=== PATIENT | female | born 1945 | race Caucasian/White ===

== ENCOUNTER → 2019-12-03 11:13 | Outpatient (CLI) | payer OTHER, SELFPAY ==
--- NOTE | ~2019-12-03 | XR_ITS ---
EXAMINATION: XR chest 2V DATE: 12/03/2019 12:06 INDICATION: Dizziness and shortness of breath. TECHNIQUE: Frontal and lateral views of the chest were obtained. COMPARISON: Chest 2 views 12/30/2018 FINDINGS: Calcified right lung nodules are consistent with old granulomatous disease. There are surgi jose a clips at the right hilum. No pleural effusion or pneumothorax. The heart size is normal. There is an implanted electronic device in left anterior chest wall. There are changes of anterior fusion pro cedure in cervical spine. IMPRESSION: 1. No acute cardiopulmonary disease. Reviewed, dictated and finalized at location A. 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
== END ==
PROVIDERS: PCP Family Medicine Adolescent Medicine; Visit Provider Physician Assistant
DX: R42 Dizziness and giddiness (principal); R06.02 Shortness of breath
CPT/HCPCS: 71046

== ENCOUNTER → 2019-12-19 09:12 | Outpatient (CLI) | payer OTHER, SELFPAY ==
--- NOTE | ~2019-12-19 | DEXA_ITS ---
Bone Density Report Name: Ana Luisa Desouza Age: 74 Sex: Female Ethnicity: White Date of : 1945 Indication: monitoring treatment; height loss; hysterectomy; Referring Provider: PIERRE SEN Study: Bone densitometry was performed. Exam Date: December 19, 2019 Accession number: [id number] Bone Density: Region BMD T-score Z-score Classification AP Spine (L1, L2) 1.368 3.5 5.8 Normal Femoral Neck (Left) 0.983 1.2 3.3 Normal Total Hip (Left) 1.215 2.2 4.0 Normal Femoral Neck (Right) 0.987 1.2 3.3 Normal Total Hip (Right) 1.181 2.0 3.7 Normal Total Hip Mean 1.198 2.1 3.9 Normal World Health Organization criteria for BMD impression classify patients as: Normal (T-score at or above -1.0), Osteopenia (T-score between -1.0 and -2.5), or Osteoporosis (T-score at or below -2.5). 10-year Fracture Risk: FRAX not reported because: All T-scores for Spine Total, Hip Total, Femoral Neck at or above -1.0 Treated for osteoporosis Previous Exams: Region Exam Age BMD T-score BMD Change BMD Change Date g/cm2 vs Baseline vs Previous AP Spine(L1, L2) 12/19/2019 74 1.368 3.5 0.155* 0.064* 05/28/2016 70 1.304 3.0 0.091* 0.091* 07/26/2013 68 1.213 2.1 Total Hip(Left) 12/19/2019 74 1.215 2.2 0.088* 0.034* 05/28/2016 70 1.181 2.0 0.054* 0.054* 07/26/2013 68 1.127 1.5 Total Hip(Right) 12/19/2019 74 1.181 2.0 0.039* 0.008 05/28/2016 70 1.173 1.9 0.032* 0.032* 07/26/2013 68 1.141 1.6 *Denotes significance at 95% confidence level, LSC for AP Spine = 0.022 g/cm2, LSC for Total Hip = 0.027 g/cm2 Clinical Information Provided by Patient: Is being treated for osteoporosis Has used the following medications: HRT (i.e. estrogen/hormone therapy), Vitamin D, Calcium Has the following medical conditions: Hysterectomy Patient maximum height was 64 Menopause Age: 42 No regular weight bearing exercise Does not regularly consume dairy products Drinks caffeinated beverages Onset of menses at age 14 Number of children 4 Impression: The patient has normal bone mass. No significant bone loss was observed. Discussion: PATIENT UNDER TREATMENT WITH NO SIGNIFICANT BMD LOSS SINCE LAST EXAM. In an untreated patient, BMD typically declines with age. A lack of decline or gain is usually a sign that treatment is efficaciou
== END ==
PROVIDERS: Visit Provider Family Medicine Adolescent Medicine
DX: Z78.0 Asymptomatic menopausal state (principal)
CPT/HCPCS: 77080

== ENCOUNTER 2019-12-20 14:11 | Outpatient (CLI) | payer OTHER, SELFPAY ==
--- NOTE | ~2019-12-20 | MM_ITS ---
EXAMINATION: MM screening iraida BI w eliot HISTORY: Screening mammogram TECHNIQUE: Craniocaudal and mediolateral oblique 3-D tomosynthesis images were obtained and synthetic 2-D images were generated. CAD analysis was submitted and interpreted. COMPARISON: Comparison to multiple prior studies sequentially, with oldest reviewed study dated 01/15. BREAST PARENCHYMAL COMPOSITION: The breasts are heterogeneously dense, which may obscure small masses . FINDINGS: There is no evidence of suspicious mass, calcification, or architectural distortion to sugg est malignancy in either breast. There has been no suspicious interval change. IMPRESSION: 1. No mammographic evidence of malignancy. 2. Recommend routine screening mammography in one year. BI-RADS Category 1: Negative Reviewed, dictated and finalized at location A. N BLOCKER
== END 2019-12-20 14:12 | disposition home or self-care (01) ==
PROVIDERS: Visit Provider Family Medicine Adolescent Medicine
DX: Z12.31 Encounter for screening mammogram for malignant neoplasm of breast (principal)
CPT/HCPCS: 77063; 77067

== ENCOUNTER 2020-11-14 08:16 | Outpatient (CLI) | payer OTHER, SELFPAY ==
--- NOTE | ~2020-11-14 | US_ITS ---
EXAMINATION: US arterial ankle brachial ind DATE: 11/14/2020 08:56 INDICATION: Peripheral vascular disease. TECHNIQUE: Segmental pressures and plethysmographic and Doppler waveforms of the brachial and lower e xtremity arteries were obtained. COMPARISON: Arterial Doppler and segmental pressures 02/03/18 FINDINGS: Right and left brachial artery pressures of 142 mm Hg and 138 mm Hg, respectively, are concordant (no rmal difference <= 30 mmHg). The right ankle-brachial index (INDIO) is 0.95 (normal >= 0.9-1.0). The right great toe-brachial index (TBI) is 0.54 (normal >= 0.65). Arterial Doppler waveforms are biphasic at the ankle. The left INDIO is 0.96. The left TBI is 0.63. Arterial Doppler waveforms are biphasic at the ankle. IMPRESSION: 1. Mildly decreased ABIs with improvement from 02/03/2018, consistent with arterial occlusive disease. Reviewed, dictated and finalized at location B. 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 Mildly decreased ABIs with improvement from 02/03/2018, consistent with arter ial occlusive disease.
== END 2020-11-14 08:17 | disposition home or self-care (01) ==
PROVIDERS: PCP Family Medicine Adolescent Medicine; Visit Provider Orthopaedic Surgery
DX: I73.9 Peripheral vascular disease, unspecified (principal)
CPT/HCPCS: 93922

== ENCOUNTER 2020-11-24 10:23 | Outpatient (CLI) | payer OTHER, SELFPAY ==
--- NOTE | ~2020-11-24 | US_ITS ---
EXAMINATION: US venous doppler LE BI EXAM DATE: 11/24/2020 11:22 INDICATION: I87.2 - Venous insufficiency (chronic) (peripheral). TECHNIQUE: Multiple grayscale, color flow and Doppler images of the lower extremity venous systems bi laterally were obtained and reviewed. Saphenous venous mapping. The exam was reviewed on 11/24/2020. T here is no prior study for comparison. FINDINGS: Right side: The right common femoral, femoral and profunda veins demonstrate normal color flow, respi ratory variation, augmentation and compressibility. Compressibility, color flow confirmed within the right popliteal, posterior tibial, peroneal, and greater saphenous veins. Right Standing Venous Mapping: reflux seconds duration; vein size. Greater saphenous origin: 0 seconds; 3.8 mm. Greater saphenous mid thigh:------ 0 seconds; 2.4 mm. Greater saphenous below knee:--- 0 seconds; 2.0 mm. Lesser saphenous proximally:------ 0 seconds; 1.2 mm. Lesser saphenous distally: 0 seconds; 1.3 mm. Left side: The left common femoral, femoral and profunda veins demonstrate normal color flow, respira tory variation, augmentation and compressibility. Compressibility, color flow confirmed within the l eft popliteal, posterior tibial, peroneal, and greater saphenous veins. Left Standing Venous Mapping: reflux seconds duration; vein size. Greater saphenous origin: 0 seconds; 3.1 mm. Greater saphenous mid thigh:------ 0 seconds; 1.8 mm. Greater saphenous below knee:--- 0 seconds; 2.0 mm. Lesser saphenous proximally:------ 0 seconds; 2.2 mm. Lesser saphenous distally: 0 seconds; 1.4 mm. IMPRESSION: 1. No lower extremity deep venous thrombosis bilaterally. 2. No venous reflux demonstrated Reviewed, dictated and finalized at location B. RANCE ACTUARY
== END 2020-11-24 10:24 | disposition home or self-care (01) ==
PROVIDERS: PCP Family Medicine Adolescent Medicine; Visit Provider Orthopaedic Surgery
DX: I87.2 Venous insufficiency (chronic) (peripheral) (principal); M79.671 Pain in right foot
CPT/HCPCS: 93970

== ENCOUNTER 2021-02-06 09:07 | Outpatient (CLI) | payer OTHER, SELFPAY ==
--- NOTE | ~2021-02-06 | MM_ITS ---
EXAMINATION: MM screening iraida BI w eliot HISTORY: Screening TECHNIQUE: Craniocaudal and mediolateral oblique 3-D tomosynthesis images were obtained and synthetic 2-D images were generated. CAD analysis was submitted and interpreted. COMPARISON: Comparison to multiple prior studies sequentially, with oldest reviewed study dated 03/18. BREAST PARENCHYMAL COMPOSITION: The breasts are heterogenously dense, which may obscure small masses FINDINGS: There is no evidence of suspicious mass, calcification, or architectural distortion to sugg est malignancy in either breast. There has been no suspicious interval change. IMPRESSION: 1. No mammographic evidence of malignancy. 2. Recommend routine screening mammography in one year. BI-RADS Category 1: Negative Reviewed, dictated and finalized at location A.
== END 2021-02-06 09:08 | disposition home or self-care (01) ==
LOC: ANHIMG 09:10
PROVIDERS: PCP Family Medicine Adolescent Medicine; Visit Provider Family Medicine Adolescent Medicine
DX: Z12.31 Encounter for screening mammogram for malignant neoplasm of breast (principal)
CPT/HCPCS: 77063; 77067

== ENCOUNTER 2021-02-19 09:47 | Outpatient (RCR) | payer OTHER, SELFPAY ==
[2021-02-19 12:41] VITALS: BMI 26.1
== END 2021-04-01 10:50 | disposition home or self-care (01) ==
LOC: ANHWOC 09:47
PROVIDERS: PCP Family Medicine Adolescent Medicine; Visit Provider Family Medicine Adolescent Medicine
DX: M79.671 Pain in right foot (principal); M79.672 Pain in left foot; R60.0 Localized edema
CPT/HCPCS: 99212; G0463

== ENCOUNTER → 2021-03-12 12:24 | Outpatient (CLI) | payer OTHER, SELFPAY ==
--- NOTE | ~2021-03-12 | US_ITS ---
EXAMINATION: US renal BI DATE: 03/12/2021 12:39 INDICATION: Chronic kidney disease TECHNIQUE: Multiple grayscale and Doppler ultrasound images of the kidneys were obtained. COMPARISON: 07/07/2015 FINDINGS: The right kidney measures 8.6 x 4.2 x 4.6 cm. The left kidney measures 8.1 x 3.5 x 4.2 cm. The kidneys demonstrate normal parenchymal echogenicity. There is no hydronephrosis. The bladder is n ormal. IMPRESSION: 1. Normal kidneys without hydronephrosis. Reviewed, dictated and finalized at location A.
== END ==
PROVIDERS: Visit Provider Internal Medicine Nephrology
DX: N18.4 Chronic kidney disease, stage 4 (severe) (principal)
CPT/HCPCS: 76775

== ENCOUNTER 2021-05-09 11:59 | Emergency (ER) | payer OTHER, SELFPAY ==
--- NOTE | ~2021-05-09 | XR_ITS ---
EXAMINATION: XR shoulder RT min 2V INDICATION: Restricted range of motion of the right arm TECHNIQUE: Four views of the right shoulder are submitted. COMPARISON: 05/26/2007 FINDINGS: Normal alignment. No fracture. There is moderate osteoarthritis of the acromioclavicular karissa int and mild osteoarthritis of the glenohumeral joint. There are partially imaged changes of anterior fusion in the cervical spine. Surgical clips are noted at the right hilum. IMPRESSION: 1. No acute osseous abnormality. Reviewed, dictated and finalized at location A.
--- NOTE | 2021-05-09 12:03 | ED.UPPEXIN ---
HPI - Extremity Injury (Upper) General Chief Complaint: Extremity Injury, Upper Stated Complaint: right shoulder pain Time Seen by Provider: 05/09/21 12:04 Source: patient and RN notes reviewed Mode of arrival: ambulatory Limitations: no limitations History of Present Illness HPI narrative: 75-year-old female presents to the [facility] with complaints of lateral right shoulder pain for approximately 1 week. Presents with daughter. Had taken Tylenol last night. Denies any injury. Decreased ROM. Denies pain in the elbow, wrist. No swelling or signs of infection. HX of arthritis. Related Data Home Medications Medication Instructions Recorded Confirmed acetaminophen 500 mg capsule 500 mg PO Q6H PRN 11/12/20 apixaban 5 mg tablet 5 mg PO BID 11/12/20 calcium carbonate 600 mg-vitamin tablet PO 11/12/20 D3 1,000 unit-vitamin K2 90 mcg tab cetirizine 10 mg tablet 10 mg PO DAILY PRN 11/12/20 chlorthalidone 25 mg tablet 25 mg PO DAILY 11/12/20 cholecalciferol (vitamin D3) 50 50 mcg PO DAILY 11/12/20 mcg (2,000 unit) capsule clonidine 0.2 mg/24 hr weekly 1 patch TRANSDERMAL WEEKLY 11/12/20 transdermal patch estradiol 0.5 mg tablet 0.5 mg PO DAILY 11/12/20 furosemide 20 mg tablet 20 mg PO QAM 11/12/20 irbesartan 300 mg tablet 150 mg PO DAILY 11/12/20 metoprolol tartrate 25 mg tablet 25 mg PO DAILY 11/12/20 pantoprazole 40 mg granules 40 mg PO DAILY 11/12/20 delayed-release for susp in packet rosuvastatin 5 mg tablet 5 mg PO DAILY 11/12/20 vitamin B complex 1 cap PO DAILY 11/12/20 gabapentin 05/09/21 Allergies Allergy/AdvReac Type Severity Reaction Status Date / Time codeine Allergy Unknown Verified 12/30/11 11:31 Review of Systems Review of Systems: All systems reviewed & are unremarkable except as noted in HPI and below Constitutional: Constitutional: Reports no additional constitutional complaints Eyes: Eyes: Reports no additional eye complaints ENT: Reports system reviewed and no additional complaints, except as documented Cardiovascular: Cardiovascular: Reports no additional cardiovascular complaints Respiratory: Respiratory: Reports no additional respiratory complaints Musculoskeletal: Musculoskeletal: Reports as per HPI and Reports arthralgias (rt shoulder) Integumentary/Breasts: Skin/Breast: Reports system reviewed and no additional complaints, except as docu, Denies erythema and Denies rash Neurologic: Reports system reviewed and no additional complaints, except as documented Psychiatric: Psychiatric: Reports no additional psychiatric complaints Allergic/Immunologic: Allergic/Immunologic: Reports no additional allergic/immunologic complaints PMFSH Past Medical History Medical History A-fib Abdominal pain Arthritis Arthritis of foot, right, degenerative High cholesterol Light headedness Peripheral arterial disease Saphenofemoral venous reflux Wears glasses Family History Family History Sibling Hypertension Family history of elevated blood lipids Father Family history of kidney disease Family history of heart disease in male family member before age 55 Mother Family history of congestive heart failure Other Arthritis Heart disease High cholesterol Lung cancer Social History Social History Smoking status: Never smoker Alcohol intake: never Gender identity (if verbalized by the patient): Female Comments At the time of my signature, I reviewed and agree with the nursing past medical, surgical, social, and family history. There is no relevant family history pertinent to the patient complaint. Exam Const: General: no acute distress, alert and ill appearing chronically Nutritional Appearance: well nourished HENMT: Head: normal to inspection Eyes: Pupils: Equal, round and reactive pupils present Neck:
[2021-05-09 12:07] VITALS: BP 115/78; PULSE 69; RESP 16; TEMP 36.7; O2SAT 98
== END 2021-05-09 13:18 | disposition home or self-care (01) ==
PROVIDERS: Emergency Provider Nurse Practitioner; PCP Family Medicine Adolescent Medicine
DX: M19.011 Primary osteoarthritis, right shoulder (principal); I48.91 Unspecified atrial fibrillation; E78.00 Pure hypercholesterolemia, unspecified; I73.9 Peripheral vascular disease, unspecified; M19.071 Primary osteoarthritis, right ankle and foot
CPT/HCPCS: 73030; 99213; G0463

== ENCOUNTER 2021-05-10 15:48 | Inpatient (IN) | payer OTHER, SELFPAY ==
--- NOTE | ~2021-05-10 | CT_ITS ---
EXAMINATION: CT brain wo con DATE: 05/10/2021 17:22 INDICATION: Altered mental status TECHNIQUE: Computed tomography (CT) of the head was performed without intravenous contrast. Sagittal and coronal reconstructions were performed. The mA was adjusted according to patient size. Iterative reconstruction technique was employed. The dose-length product was 605.33 mGy-cm. COMPARISON: head CT dated 07/06/2015 FINDINGS: No acute intracranial hemorrhage, acute infarction or abnormal extra axial fluid collection. Ventricl es are normal and symmetric. No mass/mass effect. Intracranial calcified cerebral atherosclerosis is noted. The orbits, paranasal sinuses and mastoid air cells are normal. IMPRESSION: 1. Normal brain. No acute intracranial process. Reviewed, dictated and finalized at location A.
--- NOTE | ~2021-05-10 | MR_ITS ---
EXAMINATION: MR brain/brain stem wo con DATE: 05/11/2021 13:59 INDICATION: Altered mental status TECHNIQUE: Magnetic resonance imaging (MRI) of the brain and brainstem was performed without intraven ous contrast. Sequences included sagittal and axial T1-weighted SE, axial diffusion-weighted FS SE, a xial T2*-weighted GRE, axial T2-weighted FLAIR, and axial T2-weighted FSE. Apparent diffusion coeffic ient (ADC) maps were created. COMPARISON: Head CT dated 05/10/2021 FINDINGS: There are no areas of restricted diffusion to suggest acute infarction. No intracranial hemorrhage or abnormal intracranial mass lesion. There are scattered areas of nonspecific increased T2-weighted si gnal intensity in the cerebral white matter, predominantly involving the deep and periventricular whi te matter which is within normal limits for age. There are no intraparenchymal signal abnormalities s een on the other pulse sequences. The ventricles are symmetric and normal in size. There are no abnor mal extra-axial fluid collections. Flow voids are seen in the cerebral arteries on the T2-weighted se quences consistent with their expected patency. Mild mucosal thickening the bilateral ethmoid sinuses . Visualized orbits and soft tissues are unremarkable. IMPRESSION: 1. Normal aging brain. No acute intracranial process. Reviewed, dictated and finalized at location A.
--- NOTE | ~2021-05-10 | US_ITS ---
EXAMINATION: US renal BI DATE: 05/11/2021 13:23 INDICATION: Acute kidney injury TECHNIQUE: Multiple grayscale and Doppler ultrasound images of the kidneys were obtained. COMPARISON: 03/12/2021 FINDINGS: The right kidney measures 8.3 x 4.3 x 4.6 cm. The left kidney measures 8.6 x 3.7 x 3.7 cm. The kidneys demonstrate normal parenchymal echogenicity. There is no hydronephrosis. The bladder is n ormal. IMPRESSION: 1. Mild atrophy of the kidneys without hydronephrosis. Reviewed, dictated and finalized at location B.
[2021-05-10 16:04] VITALS: BP 158/80; PULSE 70; RESP 20; TEMP 37.1; O2SAT 97
[2021-05-10 16:07] VITALS: BP 137/61; PULSE 60; RESP 20; O2SAT 98
--- NOTE | 2021-05-10 16:08 | ECG_ITS ---
Measurements Intervals [place] Rate: 57 P: -48 WY: 162 QRS: 34 QRSD: 81 T: 20 QT: 426 QTc: 418 Interpretive Statements SINUS BRADYCARDIA BASELINE ARTIFACT- I, II, III, AVR, AVL, AVF, V1-V6 BORDERLINE ECG Electronically Signed On 05-10-2021 18:02:27 CDT by Lalo Yang D.O.
--- NOTE | 2021-05-10 16:51 | ED.GENADULT ---
HPI - General Adult General Chief complaint: Altered Mental Status Stated complaint: AMS Time Seen by Provider: 05/10/21 15:49 Source: patient and family History of Present Illness HPI narrative: Patient is a 75 y/o female brought in for altered mental status. Son states that patient appeared fine when he was there to visit her yesterday. However, patient did not answer the phone later yesterday when other family members attempted to call. Son states when he went to check on her today, she was on the commode and she did not remember what happened. She may have been incontinent prior to getting on the commode. EMS was then called and brought her here. She has no recollection of what happened but states that she feels fine. Son states that she keeps repeating the same questions again and again at times. Related Data Home Medications Medication Instructions Recorded Confirmed acetaminophen 500 mg capsule 500 mg PO Q6H PRN 11/12/20 apixaban 5 mg tablet 5 mg PO BID 11/12/20 calcium carbonate 600 mg-vitamin tablet PO 11/12/20 D3 1,000 unit-vitamin K2 90 mcg tab cetirizine 10 mg tablet 10 mg PO DAILY PRN 11/12/20 chlorthalidone 25 mg tablet 25 mg PO DAILY 11/12/20 cholecalciferol (vitamin D3) 50 50 mcg PO DAILY 11/12/20 mcg (2,000 unit) capsule clonidine 0.2 mg/24 hr weekly 1 patch TRANSDERMAL WEEKLY 11/12/20 transdermal patch estradiol 0.5 mg tablet 0.5 mg PO DAILY 11/12/20 furosemide 20 mg tablet 20 mg PO QAM 11/12/20 irbesartan 300 mg tablet 150 mg PO DAILY 11/12/20 metoprolol tartrate 25 mg tablet 25 mg PO DAILY 11/12/20 pantoprazole 40 mg granules 40 mg PO DAILY 11/12/20 delayed-release for susp in packet rosuvastatin 5 mg tablet 5 mg PO DAILY 11/12/20 vitamin B complex 1 cap PO DAILY 11/12/20 gabapentin 05/09/21 Allergies Allergy/AdvReac Type Severity Reaction Status Date / Time codeine Allergy Unknown Verified 12/30/11 11:31 Review of Systems Review of Systems: ROS unobtainable: Yes unobtainable due to mental status [facility] Past Medical History Medical History (Updated 05/10/21 @ 21:17 by Fanny Hernandez MD) A-fib Abdominal pain Arthritis Arthritis of foot, right, degenerative High cholesterol Light headedness Peripheral arterial disease Saphenofemoral venous reflux Wears glasses Family History Family History Sibling Hypertension Family history of elevated blood lipids Father Family history of kidney disease Family history of heart disease in male family member before age 55 Mother Family history of congestive heart failure Other Arthritis Heart disease High cholesterol Lung cancer Social History Social History Smoking status: Never smoker Alcohol intake: never Gender identity (if verbalized by the patient): Female Exam Const: General: no acute distress and well developed Orientation/consciousness: oriented to person, oriented to place, oriented to time and patient oriented x3 HENMT: Head: normocephalic Ears: external ears normal General nose exam: Normal external nose present Eyes: General: appearance normal, both eyes and all related structures Conjunctivae: conjunctivae normal Neck: Neck: normal visual inspection and full ROM Chest: Chest palpation & inspection: normal inspection of the chest and no tenderness Resp: Effort & Inspection: normal respiratory effort Auscultation: clear to auscultation bilaterally Cardio: Rate: regular rate Rhythm: regular rhythm GI: GI Palp: No abdominal tenderness and Yes Soft to palpation Skin: General skin exam: normal color and turgor normal Neuro: General: oriented to person, oriented to place, oriented to time and patient oriented x3 Cranial nerves: Yes CN's II-XII intact bilaterally Cognition (Neuro): normal cognition Speech: normal speech Motor exam (neuro): 5/5 motor strength present throughout Se
[2021-05-10 17:46] LABS: Add Urine Microscopic? YES; Appearance Urine Cloudy (Clear); Bilirubin Urine Negative (Negative); Blood Urine Negative (Negative); Color Urine Yellow (Yellow); Glucose Urine UA Negative (Negative); Ketones Urine Trace mg/dL (Negative); Leukocyte Esterase Ur Negative LEU/UL (Negative); Mucus Urine Rare /lpf; Nitrate Urine Negative (Negative); Protein Urine Negative (Negative); Specific Grav Ur 1.017 (1.001-1.035); Squamous Epithelial Cell Urine Many /hpf (Few); Urobilinogen Urine Negative mg/dL (<2.0); WBC Urine 0-3 /hpf
[2021-05-10 17:50] LABS: Basophils Percent Auto 0.3 % (0.2-1.2); Immature Granulocyte Absolute 0.04 K/mm3 (0.00-0.031); Immature Granulocyte Percent A 0.6 % (0-0.5); Lymphocytes Percent Auto 17.1 % (18.3-44.2); Mean Corpuscular HGB Conc 34.4 g/dl (32-36); Mean Corpuscular Hemoglobin 31.7 pg (26-34); Mean Corpuscular Volume 92.2 fl (80-100); Mean Platelet Volume 9.7 fl (7.4-10.4); Monocytes Absolute Auto 0.5 K/mm3 (0.1-0.6); Monocytes Percent Auto 7.6 % (2.6-8.5); Neutrophils Absolute Auto 4.8 K/mm3 (1.3-6.7); Neutrophils Percent Auto 74.4 % (45.5-73.1); Platelet Count Result 255 k/mm3 (150-375); Red Blood Count 3.47 M/mm3 (4.2-5.4); Red Cell Distribution Width 12.2 % (11.5-14.5); White Blood Count 6.4 K/mm3 (4.5-10.0)
[2021-05-10 17:57] VITALS: BP 128/58; PULSE 61; RESP 13; O2SAT 99
[2021-05-10 18:00] LABS: Alanine Aminotransferase 13 U/L (4-35); Albumin Level 4.1 g/dL (3.5-5.1); Alkaline Phosphatase 79 U/L (38-126); Anion Gap 12 mmol/L (8-16); Aspartate Amino Transferase 22 U/L (14-36); Bilirubin,Total 1.2 mg/dL (0.2-1.3); Blood Urea Nitrogen 37 mg/dL (7-17); Calcium 11.6 mg/dL (8.4-10.2); Carbon Dioxide 27 mmol/L (22-30); Chloride 101 mmol/L (98-107); Estimated CRCL calculation 18 ml/min; Estimated Glomerular Filt Rate 24; Glucose 122 mg/dL (65-110); Potassium 3.5 mmol/L (3.4-5.0); Sodium 140 mmol/L (137-145)
[2021-05-10] MEDS: SODIUM CHLORIDE 0.9% IV 1,000 ML 999 ML IV CONT (19:01)
--- NOTE | 2021-05-10 20:30 | PM.IMHP ---
H&P: HPI History of Present Illness Date/Time: 05/10/21 20:30 Chief Complaint: Altered mental status Narrative: This is a 75-year-old female WITH PAST MEDICAL HISTORY SIGNIFICANT FOR ATRIAL FIBRILLATION, HYPERTENSION, DEGENERATIVE JOINT DISEASE. PATIENT WAS BROUGHT TO THE EMERGENCY ROOM BY AMBULANCE AFTER SHE WAS NOT ANSWERING HER FOR FAMILY WHO CHECKS IN WITH HER EVERYDAY FOUND HER SITTING ON THE TOILET AND THERE WERE SIGNS OF INCONTINENCE OF STOOL ALL OVER SHE WAS SHAKING AND CALLED AND CONFUSED. I HAVE OBTAINED MOST OF THE HISTORY FROM THE SON WHO IS IN THE EMERGENCY ROOM BY HER BEDSIDE STATES THAT SHE HAS BEEN IN HER USUAL SINCE YESTERDAY WAS THE LAST TIME THAT HE SAW HER AND HAD NOT NOTED ANY NEW ISSUES SHE HAD BEEN COMPLAINING OF SHOULDER PAIN AND SHE HAD BEEN STARTED ON BACLOFEN ALSO THE PATIENT IS KNOWN TO TAKE EXTRA GABAPENTIN IN THE PAST. PATIENT IS UNABLE TO GIVE ME ANY HISTORY A SHE HAS A VERY CONFUSED AT TIMES DOES NOT KNOW WHY SHE IS IN THE EMERGENCY ROOM. PRELIMINARY WORKUP WAS SIGNIFICANT FOR BMP WITH ELEVATED CREATININE. CT OF THE HEAD WAS UNREMARKABLE AND REST OF THE CHEMISTRY AND BLOOD PANEL WELL. Review of Systems Review of Systems: ROS unobtainable: Yes unobtainable due to medical condition [facility] Past Medical History Medical History (Updated 05/10/21 @ 20:55 by Leonard Fraire MD) A-fib Abdominal pain Arthritis Arthritis of foot, right, degenerative High cholesterol Light headedness Peripheral arterial disease Saphenofemoral venous reflux Wears glasses Family History Family History Sibling Hypertension Family history of elevated blood lipids Father Family history of kidney disease Family history of heart disease in male family member before age 55 Mother Family history of congestive heart failure Other Arthritis Heart disease High cholesterol Lung cancer Social History Social History Smoking status: Never smoker Alcohol intake: never Gender identity (if verbalized by the patient): Female Meds Home Medications and Allergies Home Medications Medication Instructions Recorded Confirmed Type acetaminophen 500 mg capsule 500 mg PO Q6H PRN 11/12/20 History apixaban 5 mg tablet 5 mg PO BID 11/12/20 History calcium carbonate 600 mg-vitamin tablet PO 11/12/20 History D3 1,000 unit-vitamin K2 90 mcg tab cetirizine 10 mg tablet 10 mg PO DAILY PRN 11/12/20 History chlorthalidone 25 mg tablet 25 mg PO DAILY 11/12/20 History cholecalciferol (vitamin D3) 50 50 mcg PO DAILY 11/12/20 History mcg (2,000 unit) capsule clonidine 0.2 mg/24 hr weekly 1 patch TRANSDERMAL WEEKLY 11/12/20 History transdermal patch estradiol 0.5 mg tablet 0.5 mg PO DAILY 11/12/20 History furosemide 20 mg tablet 20 mg PO QAM 11/12/20 History irbesartan 300 mg tablet 150 mg PO DAILY 11/12/20 History metoprolol tartrate 25 mg tablet 25 mg PO DAILY 11/12/20 History pantoprazole 40 mg granules 40 mg PO DAILY 11/12/20 History delayed-release for susp in packet rosuvastatin 5 mg tablet 5 mg PO DAILY 11/12/20 History vitamin B complex 1 cap PO DAILY 11/12/20 History baclofen 10 mg PO TID PRN #10 tablet 05/09/21 Rx diclofenac sodium 1 applic TOPICAL BID #100 g 05/09/21 Rx gabapentin 05/09/21 History Allergies Allergy/AdvReac Type Severity Reaction Status Date / Time codeine Allergy Unknown Verified 12/30/11 11:31 Vital Signs Vital Signs - 24 hr 05/10/21 16:04 05/10/21 16:07 05/10/21 17:57 Temperature 98.7 F Pulse Rate 70 60 61 Respiratory Rate 20 20 13 Blood Pressure 158/80 H 137/61 128/58 L Pulse Oximetry 97 98 99 Exam Narrative: Exam Narrative: PATIENT IS LAYING IN GURNEY Const: General: comfortable, no acute distress, well developed, alert, awake and other ( WELL-APPEARING) Nutritional Appearance: average body habitus Orientation/consciousness: orient
[2021-05-10 21:05] VITALS: BP 145/54; PULSE 71; RESP 20; TEMP 36.6; O2SAT 98
[2021-05-10 21:38] VITALS: BMI 25.9
--- NOTE | 2021-05-10 21:38 | ADMGEN ---
This patient, Ana Luisa Desouza, was admitted to [address] [place] [address] Room 321-01 at 2105 . Patient/family oriented to hospital policies and general routines including ID bracelet, bed and alarms, visiting hours, pain management, procedures, bathroom and other care routines, personal items, smoking policy, room service/diet, and visiting hours. Information on how to activate the Rapid Response Team has been discussed. Patient/Family are encouraged to report perceived risks to care and to ask questions if they do not understand what they are told or what they should do.
[2021-05-10 22:44] VITALS: BP 145/54; PULSE 71; RESP 20; TEMP 36.6; O2SAT 98
[2021-05-10] MEDS: DEXTROSE 5%/0.45% SOD CHL 1,000 ML 75 ML IV CONT (23:45)
[2021-05-11] VITALS (11 sets, daily range): BP systolic 129–154; BP diastolic 57–61; PULSE 57–72; RESP 16–20; TEMP 36.3–36.8; O2SAT 97–99
[2021-05-11] MEDS: ACETAMINOPHEN 500 MG TABLET PO (03:33)
[2021-05-11] MEDS: DICLOFENAC SODIUM 1% 100 GM GEL (*BKC) 1 APPLIC TOPICAL ×2 (08:46→16:49)
[2021-05-11] MEDS: APIXABAN 5 MG TABLET PO ×2 (08:46→20:56)
[2021-05-11] MEDS: METOPROLOL TARTRATE 50 MG TAB PO ×2 (08:46→20:56)
[2021-05-11] MEDS: VITAMIN B COMPLEX CAPSULE 1 CAP PO (08:47)
[2021-05-11] MEDS: ROSUVASTATIN 5 MG TABLET PO (08:47)
[2021-05-11] MEDS: PANTOPRAZOLE 40 MG TABLET PO (08:47)
[2021-05-11] MEDS: DEXTROSE 5%/0.45% SOD CHL 1,000 ML 75 ML IV CONT (12:03)
[2021-05-11] MEDS: ACETAMINOPHEN 500 MG TABLET 1000 MG PO (14:56)
--- NOTE | 2021-05-11 16:50 | PM.IMPN ---
Progress Note: A&P Assessment and Plan (1) Altered mental status: Code(s): R41.82 - Altered mental status, unspecified Status: Acute Assessment and Plan: ?SUSPECTED DRUG TOXICITY SPECIFICALLY GABAPENTIN AND BACLOFEN Continue to hold GABAPENTIN AND BACLOFEN CONTINUE TO MONITOR SUPPORTIVE CARE MRI OF THE BRAIN negative (2) DIGNA (acute kidney injury): Code(s): N17.9 - Acute kidney failure, unspecified Status: Acute Assessment and Plan: SUSPECT PRE RENAL ALTHOUGH PATIENT WITH HISTORY OF HYPERTENSION WILL HOLD CHLORTHALIDONE WILL HOLD IRBESARTAN BMP IN THE MORNING RENAL ULTRASOUND-->Mild atrophy of the kidneys without hydronephrosis (3) A-fib: Code(s): I48.91 - Unspecified atrial fibrillation Status: Inactive Assessment and Plan: RATE CONTROLLED ABLATION X2 IN THE PAST CONTINUE ANTICOAGULATION WITH APIXABAN CONTINUE TO MONITOR (4) Arthritis: Code(s): M19.90 - Unspecified osteoarthritis, unspecified site Status: Inactive Assessment and Plan: TYLENOL P.R.N. Subjective Date/time seen: 05/11/21 16:50 pt seen and evaluated; daughter at the bedside; mental status back to baseline Review of Systems Review of Systems: All systems reviewed & are unremarkable except as noted in HPI and below Musculoskeletal: Musculoskeletal: Reports arthralgias Comments: right shoulder; pain bilateral feet Exam Const: General: no acute distress, alert and awake Orientation/consciousness: patient oriented x3 HENMT: Head: normocephalic and atraumatic Ears: hearing grossly normal bilaterally and external ears normal Face and sinus: face symmetric Mouth: Yes Normal oral and palatal mucosa present Eyes: Pupils: Equal, round and reactive pupils present EOM: EOMs intact bilaterally Neck: Neck: full ROM, trachea midline and no JVD Thyroid: thyroid normal Chest: Chest palpation & inspection: normal inspection of the chest Resp: Effort & Inspection: normal respiratory effort Auscultation: clear to auscultation bilaterally Cardio: Jugular venous distension: no JVD Rate: regular rate Rhythm: regular rhythm Heart sounds: S1 normal heart sound present and S2 normal heart sound present GI: Inspection: normal to inspection GI Palp: Yes Soft to palpation Percussion: Yes normal to percussion Auscultation: normal bowel sounds : General: Yes no CVA tenderness Back/Spine/Pelvis: Back: no CVA tenderness Skin: General skin exam: normal color Rashes: no rashes Neuro: General: patient oriented x3 and CN's II-XI intact bilaterally Cranial nerves: Yes Equal, round and reactive pupils present Speech: normal speech Psych: Appearance: grossly normal Affect: normal affect Judgement: Good judgement present (Psych) Objective Data Vital Signs Vital Signs: Vital Signs - 24 hr 05/10/21 17:57 05/10/21 21:05 05/10/21 22:44 Temperature 36.6 C 36.6 C Pulse Rate 61 71 71 Respiratory Rate 13 20 20 Blood Pressure 128/58 L 145/54 H 145/54 H Pulse Oximetry 99 98 98 05/11/21 00:00 05/11/21 04:00 05/11/21 06:00 Temperature 36.3 C L Pulse Rate 72 63 65 Respiratory Rate 20 Blood Pressure 129/57 L Pulse Oximetry 97 05/11/21 08:00 05/11/21 08:46 05/11/21 12:00 Temperature Pulse Rate 71 65 59 L Respiratory Rate Blood Pressure Pulse Oximetry 05/11/21 14:00 05/11/21 16:00 Temperature 36.4 C Pulse Rate 57 L 58 L Respiratory Rate 16 Blood Pressure 154/59 H Pulse Oximetry 99 Intake/Output Intake/Output: Intake & Output 05/08/21 05/09/21 05/10/21 05/11/21 23:59 23:59 23:59 23:59 Intake Total 1000 1220 Balance 1000 1220 Meds/Results Medications: Active Medications Generic Name Dose Route Start Last Admin Trade Name Freq PRN Reason Stop Dose Admin Acetaminophen 1,000 mg 05/11/21 03:44 05/11/21 14:56 Acetaminophen 500 Mg Tablet PO 1,000 mg Q6H PRN Administration Pain Apixaban 5
--- NOTE | 2021-05-11 16:58 | PM.IMPN ---
Progress Note: A&P Assessment and Plan (1) Altered mental status: Code(s): R41.82 - Altered mental status, unspecified Status: Acute Assessment and Plan: ?SUSPECTED DRUG TOXICITY SPECIFICALLY GABAPENTIN AND BACLOFEN Continue to hold GABAPENTIN AND BACLOFEN CONTINUE TO MONITOR SUPPORTIVE CARE MRI OF THE BRAIN negative (2) DIGNA (acute kidney injury): Code(s): N17.9 - Acute kidney failure, unspecified Status: Acute Assessment and Plan: SUSPECT PRE RENAL ALTHOUGH PATIENT WITH HISTORY OF HYPERTENSION WILL HOLD CHLORTHALIDONE WILL HOLD IRBESARTAN BMP IN THE MORNING RENAL ULTRASOUND-->Mild atrophy of the kidneys without hydronephrosis (3) A-fib: Code(s): I48.91 - Unspecified atrial fibrillation Status: Inactive Assessment and Plan: RATE CONTROLLED ABLATION X2 IN THE PAST CONTINUE ANTICOAGULATION WITH APIXABAN CONTINUE TO MONITOR (4) Arthritis: Code(s): M19.90 - Unspecified osteoarthritis, unspecified site Status: Inactive Assessment and Plan: TYLENOL P.R.N. (5) Hypokalemia: Code(s): E87.6 - Hypokalemia Status: Acute Assessment and Plan: K+ 2.8 Replaced with 40 meq ivpb kcl Monitor (6) Insomnia: Code(s): G47.00 - Insomnia, unspecified Status: Acute Assessment and Plan: Will give melatonin at bedtime Subjective Date/time seen: 05/11/21 16:58 pt seen and evaluated; states she has had some trouble sleeping; K+ 2.8 today; son at the bedside Review of Systems Review of Systems: All systems reviewed & are unremarkable except as noted in HPI and below ROS unobtainable: Yes unobtainable due to medical condition Exam Narrative: Exam Narrative: PATIENT IS LAYING IN GURNEY Const: General: comfortable, no acute distress, well developed, alert, awake, confusion and other ( WELL-APPEARING) Nutritional Appearance: average body habitus Orientation/consciousness: oriented to person, oriented to place, patient oriented x3 and confusion HENMT: Head: normal to inspection, normocephalic and atraumatic Ears: hearing grossly normal bilaterally and external ears normal General nose exam: Normal external nose present Face and sinus: normal facial exam and face symmetric Mouth: Yes Normal oral and palatal mucosa present Eyes: General: appearance normal, both eyes and all related structures Alignment and Position: alignment normal Sclera: sclerae normal Pupils: Equal, round and reactive pupils present EOM: EOMs intact bilaterally Neck: Neck: normal visual inspection, full ROM, no lymphadenopathy, trachea midline, supple and no JVD Thyroid: thyroid normal Lymphatic: no lymphadenopathy noted Chest: Chest palpation & inspection: normal inspection of the chest Resp: Effort & Inspection: normal respiratory effort and able to speak in complete sentences Auscultation: clear to auscultation bilaterally Cardio: Jugular venous distension: no JVD Rate: regular rate Rhythm: regular rhythm Heart sounds: S1 normal heart sound present and S2 normal heart sound present GI: Inspection: normal to inspection Auscultation: normal bowel sounds : General: Yes no CVA tenderness and Yes deferred Back/Spine/Pelvis: Back: no CVA tenderness Skin: General skin exam: normal color Rashes: no rashes Wounds: no wounds Neuro: General: oriented to person, oriented to place, patient oriented x3, CN's II-XI intact bilaterally and confusion Cranial nerves: Yes CN's II-XII intact bilaterally and Yes Equal, round and reactive pupils present Cognition (Neuro): abnormal cognition ( CONFUSED) Speech: normal speech Gait exam (Neuro): Normal gait present Motor exam (neuro): 5/5 motor strength present throughout Extrem: General: normal to inspection, full ROM, no joint enlargement and no pedal edema Psych: Appearance: grossly normal Mental Status: mental status grossly normal Speech and movement: Normal speech and movement
[2021-05-12] VITALS (12 sets, daily range): BP systolic 146–153; BP diastolic 69–73; PULSE 62–72; RESP 16–18; TEMP 36.4–36.6; O2SAT 96–98
[2021-05-12] MEDS: DEXTROSE 5%/0.45% SOD CHL 1,000 ML 75 ML IV CONT (03:21)
[2021-05-12 06:34] LABS: Basophils Percent Auto 0.4 % (0.2-1.2); Eosinophils Percent Auto 0.2 % (0-4.4); Hemoglobin 10.6 g/dL (12.0-15.0); Immature Granulocyte Absolute 0.03 K/mm3 (0.00-0.031); Immature Granulocyte Percent A 0.4 % (0-0.5); Lymphocytes Absolute Auto 1.25 K/mm3 (0.9-3.2); Lymphocytes Percent Auto 15.3 % (18.3-44.2); Mean Corpuscular HGB Conc 34.2 g/dl (32-36); Mean Corpuscular Hemoglobin 31.5 pg (26-34); Mean Platelet Volume 9.8 fl (7.4-10.4); Monocytes Absolute Auto 0.5 K/mm3 (0.1-0.6); Monocytes Percent Auto 6.1 % (2.6-8.5); Neutrophils Absolute Auto 6.3 K/mm3 (1.3-6.7); Neutrophils Percent Auto 77.6 % (45.5-73.1); Platelet Count Result 254 k/mm3 (150-375); Red Blood Count 3.37 M/mm3 (4.2-5.4); Red Cell Distribution Width 12.2 % (11.5-14.5); White Blood Count 8.2 K/mm3 (4.5-10.0)
[2021-05-12 06:59] LABS: Anion Gap 8 mmol/L (8-16); Blood Urea Nitrogen 18 mg/dL (7-17); Calcium 10.6 mg/dL (8.4-10.2); Carbon Dioxide 26 mmol/L (22-30); Chloride 101 mmol/L (98-107); Estimated CRCL calculation 26 ml/min; Estimated Glomerular Filt Rate 37; Glucose 131 mg/dL (65-110); Potassium 2.8 mmol/L (3.4-5.0); Sodium 135 mmol/L (137-145)
[2021-05-12] MEDS: DICLOFENAC SODIUM 1% 100 GM GEL (*BKC) 1 APPLIC TOPICAL ×2 (09:45→17:33)
[2021-05-12] MEDS: PANTOPRAZOLE 40 MG TABLET PO (09:46)
[2021-05-12] MEDS: METOPROLOL TARTRATE 50 MG TAB PO ×2 (09:46→20:26)
[2021-05-12] MEDS: VITAMIN B COMPLEX CAPSULE 1 CAP PO (09:46)
[2021-05-12] MEDS: ROSUVASTATIN 5 MG TABLET PO (09:46)
[2021-05-12] MEDS: APIXABAN 5 MG TABLET PO ×2 (09:46→20:26)
[2021-05-12] MEDS: SODIUM CHLORIDE 0.9% IV 1,000 ML 50 ML IV CONT (14:33)
--- NOTE | 2021-05-12 19:03 | PM.IMPN ---
Subjective Date/time seen: 05/12/21 19:03 Objective Data Vital Signs Vital Signs: Vital Signs - 24 hr 05/11/21 20:00 05/11/21 20:56 05/11/21 22:00 Temperature 36.8 C Pulse Rate 64 68 68 Respiratory Rate 18 18 Blood Pressure 152/61 H Pulse Oximetry 98 98 05/12/21 00:00 05/12/21 04:00 05/12/21 06:00 Temperature 36.6 C Pulse Rate 68 67 62 Respiratory Rate 16 Blood Pressure 153/73 H Pulse Oximetry 96 05/12/21 08:00 05/12/21 09:46 05/12/21 11:24 Temperature Pulse Rate 70 67 Respiratory Rate Blood Pressure Pulse Oximetry 97 05/12/21 12:00 05/12/21 14:00 05/12/21 16:00 Temperature 36.4 C Pulse Rate 68 64 62 Respiratory Rate 16 Blood Pressure 151/69 H Pulse Oximetry 98 Intake/Output Intake/Output: Intake & Output 05/09/21 05/10/21 05/11/21 05/12/21 23:59 23:59 23:59 23:59 Intake Total 1000 2009 2880 Output Total 500 1875 Balance 1000 1510 1005 Meds/Results Medications: Active Medications Generic Name Dose Route Start Last Admin Trade Name Freq PRN Reason Stop Dose Admin Acetaminophen 1,000 mg 05/11/21 03:44 05/11/21 14:56 Acetaminophen 500 Mg Tablet PO 1,000 mg Q6H PRN Administration Pain Apixaban 5 mg 05/11/21 09:00 05/12/21 09:46 Apixaban 5 Mg Tablet PO 5 mg Q12HR SLIME Administration Clonidine HCl 1 patch 05/13/21 09:00 Clonidine 0.2 Mg/24 Hr Patch TRANSDERM WEEKLY SLIME Diclofenac Sodium 1 applic 05/11/21 09:00 05/12/21 17:33 Diclofenac Sodium 1% 100 Gm Gel (*Bkc) TOPICAL 06/10/21 09:01 1 applic BID SLIME Administration Estradiol 0.5 mg 05/11/21 09:00 Estradiol 0.5 Mg Tablet PO DAILY SLIME Sodium Chloride 1,000 mls @ 50 mls/hr 05/12/21 12:45 05/12/21 14:33 Normal Saline Iv IV CONT 50 mls/hr .Q20H SLIME Administration Melatonin 3 mg 05/12/21 21:00 Melatonin 3 Mg Tablet PO HS SLIME Metoprolol Tartrate 50 mg 05/11/21 09:00 05/12/21 09:46 Metoprolol Tartrate 50 Mg Tab PO 50 mg Q12HR SLIME Administration Pantoprazole Sodium 40 mg 05/11/21 09:00 05/12/21 09:46 Pantoprazole 40 Mg Tablet PO 40 mg QAM SLIME Administration Rosuvastatin Calcium 5 mg 05/11/21 09:00 05/12/21 09:46 Rosuvastatin 5 Mg Tablet PO 5 mg DAILY SLIME Administration Vitamin B Complex 1 cap 05/11/21 09:00 05/12/21 09:46 Vitamin B Complex Capsule PO 1 cap DAILY SLIME Administration Radiology Results: ITS Impressions Head CT 05/10/21 17:32 IMPRESSION: 1. Normal brain. No acute intracranial process. Renal Ultrasound 05/11/21 13:55 IMPRESSION: 1. Mild atrophy of the kidneys without hydronephrosis. Brain MRI 05/11/21 14:31 IMPRESSION: 1. Normal aging brain. No acute intracranial process. Labs Labs: Laboratory Results - last 24 hr 05/12/21 05/12/21 05:59 05:59 WBC 8.2 RBC 3.37 L Hgb 10.6 L Hct 31.0 L MCV 92.0 MCH 31.5 MCHC 34.2 RDW 12.2 Plt Count 254 MPV 9.8 Immature Gran % (Auto) 0.4 Neut % (Auto) 77.6 H Lymph % (Auto) 15.3 L Edmunds % (Auto) 6.1 Eos % (Auto) 0.2 Baso % (Auto) 0.4 Lymph # (Auto) 1.25 Edmunds # (Auto) 0.5 Eos # (Auto) 0.0 Baso # (Auto) 0.0 Abs Immat Gran (auto) 0.03 Absolute Neuts (auto) 6.3 Absolute Nucleated RBC 0.0 Nucleated RBC % 0.0 Sodium 135 L Potassium 2.8 L* Chloride 101 Carbon Dioxide 26 Anion Gap 8 BUN 18 H D Creatinine 1.40 H Estim Creat Clear Calc 26 Estimated GFR 37 L Glucose 131 H Calcium 10.6 H
[2021-05-12] MEDS: MELATONIN 3 MG TABLET PO (20:26)
[2021-05-12] MEDS: ACETAMINOPHEN 500 MG TABLET 1000 MG PO (21:26)
[2021-05-13] VITALS (7 sets, daily range): BP systolic 144–153; BP diastolic 64–67; PULSE 59–68; RESP 16–18; TEMP 36.2–36.3; O2SAT 97–99
[2021-05-13] MEDS: DICLOFENAC SODIUM 1% 100 GM GEL (*BKC) 1 APPLIC TOPICAL (09:44)
[2021-05-13] MEDS: cloNIDine 0.2 MG/24 HR PATCH 1 PATCH TRANSDERM (09:45)
[2021-05-13] MEDS: APIXABAN 5 MG TABLET PO (09:46)
[2021-05-13] MEDS: VITAMIN B COMPLEX CAPSULE 1 CAP PO (09:46)
[2021-05-13] MEDS: METOPROLOL TARTRATE 50 MG TAB PO (09:46)
[2021-05-13] MEDS: PANTOPRAZOLE 40 MG TABLET PO (09:47)
[2021-05-13 12:16] LABS: Anion Gap 8 mmol/L (8-16); Blood Urea Nitrogen 12 mg/dL (7-17); Calcium 9.8 mg/dL (8.4-10.2); Carbon Dioxide 24 mmol/L (22-30); Chloride 104 mmol/L (98-107); Estimated CRCL calculation 28 ml/min; Estimated Glomerular Filt Rate 40; Glucose 101 mg/dL (65-110); Potassium 3.5 mmol/L (3.4-5.0); Sodium 136 mmol/L (137-145)
--- NOTE | 2021-05-13 15:37 | PM.DS ---
DS: Admitting Diagnosis Admitting Diagnosis altered mental status DS: Discharge Diagnosis Discharge Diagnosis (1) Altered mental status: Code(s): R41.82 - Altered mental status, unspecified Status: Acute Assessment and Plan: ?SUSPECTED DRUG TOXICITY SPECIFICALLY GABAPENTIN AND BACLOFEN Stop baclofen MRI OF THE BRAIN negative (2) DIGNA (acute kidney injury): Code(s): N17.9 - Acute kidney failure, unspecified Status: Acute Assessment and Plan: Improved SUSPECT PRE RENAL ALTHOUGH PATIENT WITH HISTORY OF HYPERTENSION RENAL ULTRASOUND-->Mild atrophy of the kidneys without hydronephrosis (3) A-fib: Code(s): I48.91 - Unspecified atrial fibrillation Status: Inactive Assessment and Plan: RATE CONTROLLED ABLATION X2 IN THE PAST CONTINUE ANTICOAGULATION WITH APIXABAN (4) Arthritis: Code(s): M19.90 - Unspecified osteoarthritis, unspecified site Status: Inactive Assessment and Plan: TYLENOL P.R.N. (5) Hypokalemia: Code(s): E87.6 - Hypokalemia Status: Acute Assessment and Plan: Resolved (6) Insomnia: Code(s): G47.00 - Insomnia, unspecified Status: Acute Assessment and Plan: melatonin given at bedtime DS: Summary Hospital Course Hospital Course: 75-year-old female with a PMH significant for atrial fibrillation, HTN, and DJD who presented to the ED via EMS with complaints of altered mental status. She was not answering her phone, so her family went to her home. She was found sitting on her toilet with evidence of incontinence of stool and she was confused. She was seen in the UC and recently prescribed Baclofen for right shoulder pain and her gabapentin dose was increased. Cr was elevated; all other labs unremarkable. CT of the head was unremarkable. Baclofen and gabapentin were held and her symptoms resolved. She was found with hypokalemia and treated with 40 meq of KCL. Her electrolytes have improved and she is stable for discharge. Time Spent with Patient Time attestation: Total time spent providing and/or coordinating discharge services: Exam Narrative: Exam Narrative: PATIENT IS LAYING IN GURNEY Const: General: comfortable, no acute distress, well developed, alert, awake, confusion and other ( WELL-APPEARING) Nutritional Appearance: average body habitus Orientation/consciousness: oriented to person, oriented to place, patient oriented x3 and confusion HENMT: Head: normal to inspection, normocephalic and atraumatic Ears: hearing grossly normal bilaterally and external ears normal General nose exam: Normal external nose present Face and sinus: normal facial exam and face symmetric Mouth: Yes Normal oral and palatal mucosa present Eyes: General: appearance normal, both eyes and all related structures Alignment and Position: alignment normal Sclera: sclerae normal Pupils: Equal, round and reactive pupils present EOM: EOMs intact bilaterally Neck: Neck: normal visual inspection, full ROM, no lymphadenopathy, trachea midline, supple and no JVD Thyroid: thyroid normal Lymphatic: no lymphadenopathy noted Chest: Chest palpation & inspection: normal inspection of the chest Resp: Effort & Inspection: normal respiratory effort and able to speak in complete sentences Auscultation: clear to auscultation bilaterally Cardio: Jugular venous distension: no JVD Rate: regular rate Rhythm: regular rhythm Heart sounds: S1 normal heart sound present and S2 normal heart sound present GI: Inspection: normal to inspection Auscultation: normal bowel sounds : General: Yes no CVA tenderness and Yes deferred Back/Spine/Pelvis: Back: no CVA tenderness Skin: General skin exam: normal color Rashes: no rashes Wounds: no wounds Neuro: General: oriented to person, oriented to place, patient oriented x3, CN's II-XI intact bilaterally and confusion Cranial nerves: Yes CN's II-XII intact bilaterally and Yes Equal, rou
== END 2021-05-13 14:55 | disposition home or self-care (01) | DRG 948 ==
LOC: ANHED 15:52 → ANH3MEDSUR 19:56
PROVIDERS: Nurse Practitioner Adult Health; Admitting Provider Internal Medicine; Emergency Provider Emergency Medicine; PCP Family Medicine Adolescent Medicine; Visit Provider Internal Medicine
DX: R41.82 Altered mental status, unspecified (principal); N17.9 Acute kidney failure, unspecified; T42.6X5A Adverse effect of other antiepileptic and sedative-hypnotic drugs, initial encounter; T42.8X5A Adverse effect of antiparkinsonism drugs and other central muscle-tone depressants, initial encounter; I48.91 Unspecified atrial fibrillation; M19.90 Unspecified osteoarthritis, unspecified site; E87.6 Hypokalemia; G47.00 Insomnia, unspecified; I73.9 Peripheral vascular disease, unspecified; R29.700 NIHSS score 0; N18.9 Chronic kidney disease, unspecified
CPT/HCPCS: 36415; 70450; 70551; 73030; 76775; 80048; 80053; 81001; 85025; 93005; 96360; 96361; 99213; 99285; A9270; G0378; G0463; J3480; J7030

== ENCOUNTER → 2021-08-07 11:01 | Outpatient (CLI) | payer OTHER, SELFPAY ==
--- NOTE | ~2021-08-07 | XR_ITS ---
XR chest 2V DATE: 08/07/2021 11:59 INDICATION: Dyspnea TECHNIQUE: Upright 2 view examination COMPARISON: December 03, 2019 2 view chest FINDINGS: desk monitor is again noted at the anterior lower left chest wall. Normal heart size. Th ere is aortic calcification and mild unfolding. No hilar or mediastinal enlargement. There is postope rative change of the right hilum. There is old pulmonary granulomatous disease of the right lung. No pulmonary infiltrate or consolidation, pleural effusion or pulmonary vascular congestion or pneumo thorax. Status post lower anterior cervical spine surgical fusion. IMPRESSION: Postoperative change of right lung No active cardiopulmonary disease Aortic atherosclerosis Old pulmonary granulomatous disease No significant change since December 03, 2019 Reviewed, dictated and finalized at location A.
== END ==
PROVIDERS: PCP Family Medicine Adolescent Medicine; Visit Provider Family Medicine Adolescent Medicine
DX: R06.00 Dyspnea, unspecified (principal); I70.0 Atherosclerosis of aorta
CPT/HCPCS: 71046

== ENCOUNTER 2021-12-04 13:43 | Outpatient (CLI) | payer OTHER, SELFPAY ==
--- NOTE | 2021-12-04 17:45 | WPDPFTINT ---
PFT Procedure Performed PFT Procedure Performed Plethysmography (Lung Vol) Diffusing Cap (DLCO) Flow Vol Loop Spirometry w/o Bronchodil PFT Interpretation This is a pulmonary function test with spirometry, plethysmography and diffusing capacity. The test was performed and results interpreted in accordance with the 2019 and 2005 ATS/ERS Task Force guidelines respectively using the Global Lung Function Initiative-2012 reference equations. Patient demonstrated good effort and cooperation. Reproducibility criteria were met. The quality of the spirometry maneuver was Grade A. Findings: Spirometry: The contour the inspiratory and expiratory flow tracing are normal. The FVC is 1.83 L, 83% predicted. The FEV1 is 1.52 L, 89% predicted. The FEV1: FVC ratio was 83%. Plethysmography: The total lung capacity is 3.91 L, 91% predicted. The functional residual capacity is 2.33 L, 85% predicted. The residual volume is 2.01 L, 96% predicted. Diffusing capacity: The diffusing capacity on adjusted for hemoglobin is 10.3, 53% predicted. The diffusing capacity adjusted for alveolar volume is 3.45, 81% predicted. Impression: The spirometry is normal without evidence of an obstructive abnormality. The lung volumes are normal. The diffusing capacity unadjusted for hemoglobin is moderately decreased and normalizes when adjusted for alveolar volume. There are no prior studies for comparison
== END 2021-12-04 13:44 | disposition home or self-care (01) ==
PROVIDERS: PCP Family Medicine Adolescent Medicine; Visit Provider Internal Medicine Cardiovascular Disease
DX: R06.00 Dyspnea, unspecified (principal); I27.20 Pulmonary hypertension, unspecified
CPT/HCPCS: 94375; 94726; 94729

== ENCOUNTER 2022-05-26 10:20 | Outpatient (CLI) | payer OTHER, SELFPAY ==
--- NOTE | ~2022-05-26 | MM_ITS ---
EXAMINATION: MM screening iraida BI w eliot HISTORY: Screening TECHNIQUE: Craniocaudal and mediolateral oblique 3-D tomosynthesis images were obtained and synthetic 2-D images were generated. CAD analysis was submitted and interpreted. COMPARISON: Comparison to multiple prior studies sequentially, with oldest reviewed study dated 12/07. BREAST PARENCHYMAL COMPOSITION: The breasts are extremely dense, which lowers the sensitivity of mamm ography FINDINGS: There is no evidence of suspicious mass, calcification, or architectural distortion to sugg est malignancy in either breast. There has been no suspicious interval change. IMPRESSION: 1. No mammographic evidence of malignancy. 2. Recommend routine screening mammography in one year. BI-RADS Category 1: Negative Reviewed, dictated and finalized at location A.
== END 2022-05-26 10:21 | disposition home or self-care (01) ==
PROVIDERS: PCP Family Medicine Adolescent Medicine; Visit Provider Family Medicine Adolescent Medicine
DX: Z12.31 Encounter for screening mammogram for malignant neoplasm of breast (principal)
CPT/HCPCS: 77063; 77067

== ENCOUNTER 2022-08-10 10:19 | Outpatient (CLI) | payer OTHER, SELFPAY ==
--- NOTE | ~2022-08-10 | US_ITS ---
EXAMINATION: US carotid duplex BI DATE: 08/10/2022 10:58 INDICATION: Left carotid bruit. TECHNIQUE: Grayscale, color Doppler, and pulsed Doppler images of the cervical carotid arteries were obtained. The degree of vessel stenosis is placed in one of the following categories: normal, <50%, 5 0-69%, >=70% but less than near-occlusion, near-occlusion, or total occlusion. Note that percent sten osis relative to normal distal artery lumen diameter is indirectly measured from velocity measurement s as described by Sharad, et al. Radiology 2003; [id number]:[id number]. COMPARISON: Ultrasound 11/01/2017 FINDINGS: RIGHT: The right common carotid artery (CCA) peak systolic velocity (PSV) is 80 cm/s. The right internal car otid artery (ICA) PSV is 83 cm/s. The right ICA end-diastolic velocity (EDV) is 13 cm/s. The right IC A/CCA PSV ratio is 1.0. Grayscale and color Doppler images yield an estimate of <50% diameter reducti on from plaque in the ICA. There is antegrade flow in the right vertebral artery. LEFT: The left CCA PSV is 117 cm/s. The left ICA PSV is 82 cm/s. The left ICA EDV is 17 cm/s. The left ICA/ CCA PSV ratio is 0.7. Grayscale and color Doppler images yield an estimate of <50% diameter reduction from plaque in the ICA. There is antegrade flow in the left vertebral artery. IMPRESSION: 1. <50% stenosis in the right internal carotid artery. 2. <50% stenosis in the left internal carotid artery. Reviewed, dictated and finalized at location A.
== END 2022-08-10 10:20 | disposition home or self-care (01) ==
PROVIDERS: PCP Family Medicine Adolescent Medicine; Visit Provider Internal Medicine Cardiovascular Disease
DX: R10.11 Right upper quadrant pain (principal); I65.23 Occlusion and stenosis of bilateral carotid arteries
CPT/HCPCS: 93880

== ENCOUNTER 2022-09-21 09:53 | Outpatient (CLI) | payer OTHER, SELFPAY ==
--- NOTE | ~2022-09-21 | MR_ITS ---
EXAMINATION: MR shoulder RT wo con DATE: 09/21/2022 10:44 INDICATION: Right shoulder pain. TECHNIQUE: Magnetic resonance imaging (MRI) of the right shoulder was performed without intravenous c ontrast. Sequences included axial PD-weighted FS FSE, coronal oblique PD-weighted FS FSE and T2-weigh gonzalez FS FSE, and sagittal oblique T2-weighted FS FSE and T1-weighted FSE. COMPARISON: Right shoulder radiographs 05/09/2021 FINDINGS: Coracoacromial arch: The acromion undersurface is flat in morphology (type I). There is severe acromioclavicular joint ost eoarthritis including inferiorly directed osteophytes. There is moderate subacromial/subdeltoid bursi tis. Rotator cuff: There is severe supraspinatus and infraspinatus tendinopathy. There is a near full-thickness tear of supraspinatus and infraspinatus tendons measuring 2.8 cm anterior to posterior by 1.4 cm proximal to distal. Teres minor tendon is normal. There is mild subscapularis tendinopathy. There is mild fatty a trophy of supraspinatus and infraspinatus muscle bellies. Biceps tendon and glenoid labrum: Biceps tendon is in bicipital groove. Intra-articular biceps tendon is normal. The glenoid labrum is intact. Fluid: There is a large glenohumeral joint effusion. Bones/cartilage: There is shallow partial-thickness cartilage loss of glenoid and humeral head. IMPRESSION: 1. Near full-thickness rotator cuff tear. 2. Mild glenohumeral joint chondrosis. 3. Severe acromioclavicular joint osteoarthritis. 4. Large glenohumeral joint effusion. 5. Moderate subacromial/subdeltoid bursitis. Reviewed, dictated and finalized at location A. CY ANALYST
== END 2022-09-21 09:54 ==
PROVIDERS: PCP Family Medicine Adolescent Medicine; Visit Provider Family Medicine Adolescent Medicine
DX: M75.101 Unspecified rotator cuff tear or rupture of right shoulder, not specified as traumatic (principal); M94.8X1 Other specified disorders of cartilage, shoulder; M25.511 Pain in right shoulder; M19.011 Primary osteoarthritis, right shoulder; M25.411 Effusion, right shoulder; M75.51 Bursitis of right shoulder
CPT/HCPCS: 73221

== ENCOUNTER 2022-12-16 12:30 | Outpatient (RCR) | payer OTHER, SELFPAY ==
--- NOTE | 2022-11-17 14:22 | PTOPEVAL1 ---
Assessment and note entered by Carmelo Caraballo, PT Evaluation Information Diagnosis Rotator Cuff Tear R shoulder Onset July 2022 Subjective Information Ana Luisa reports that she had a fall on the R side when the pain in her shoulder started, but the fall did not cause the pain. She has issues with blow drying and brushing her hair and other over head activities. She reports she had L shoulder rotator cuff repair about 10 years ago and she was happy with the results so she will do her home exercise program, but is looking towards doing surgery on the R shoulder if the doctor recommends it. (Physical therapist reports he understands and appreciates her trying therapy to see if we can improve range of motion, strength, or decrease pain. Reported Pain Level Pain Score 0: Self Report Additional Pain Score Comments currently pain is 0/10 patient stating she is having a good day, but can get up to 8-9/10 pain with a lot of overhead activities or use of the R shoulder. Assessment PT Clinical Summary Ana Luisa is a 77 year old female coming into the clinic for R shoulder pain. She has decreased range of motion, strength, and rounded posture to go with pain mainly with sleeping and overhead activities. Patient appears hesitant to do therapy, but reports she will try to do her best with her exercises. Physical therapy will work on improving range of motion, posture, and strength, along with modalities and manual therapy for pain . Plan of Care Interventions Electrical Stimulation,Gait Training,Hot Pack/Cold Pack,Manual Therapy,Neuro Re-education,Patient/ Caregiver Education,Therapeutic Activities, Therapeutic Exercise PT Services Indicated Yes Treatment Frequency and 1x/wk for 4 weeks Duration These treatments will address the objective and functional deficits as defined above. The patient will be advanced safely and appropriately in order for the patient to progress towards his/her prior level of function. Additional exercises will be introduced and as well as a comprehensive home exercise program upon discharge, if needed, ?to ensure carryover of functional gains achieved in the clinic. This treatment plan has been reviewed and agreement upon by the patient.
== END 2022-12-17 09:11 | disposition home or self-care (01) ==
LOC: ANHPT 12:30
PROVIDERS: PCP Family Medicine Adolescent Medicine; Visit Provider Orthopaedic Surgery
DX: M75.121 Complete rotator cuff tear or rupture of right shoulder, not specified as traumatic (principal)
CPT/HCPCS: 97110; 97161

== ENCOUNTER 2023-03-02 11:22 | Outpatient (CLI) | payer OTHER, SELFPAY ==
[2023-03-02 12:14] LABS: Anion Gap 4 mmol/L (8-16); Blood Urea Nitrogen 20 mg/dL (7-17); Calcium 10.4 mg/dL (8.4-10.2); Carbon Dioxide 31 mmol/L (22-30); Chloride 105 mmol/L (98-107); Estimated Glomerular Filt Rate 40; Glucose 95 mg/dL (65-110); INR 1.7; Partial Thromboplastin Time 41.7 SECONDS (22.3-36.8); Potassium 3.8 mmol/L (3.4-5.0); Prothrombin Time 20.9 Seconds (11.1-14.7); Sodium 140 mmol/L (137-145)
== END 2023-03-02 11:23 | disposition home or self-care (01) ==
LOC: ANHSURGERY 11:29
PROVIDERS: Anesthesiology; PCP Family Medicine; Visit Provider Orthopaedic Surgery
DX: I12.9 Hypertensive chronic kidney disease with stage 1 through stage 4 chronic kidney disease, or unspecified chronic kidney disease (principal); N18.32 Chronic kidney disease, stage 3b; Z01.818 Encounter for other preprocedural examination
CPT/HCPCS: 36415; 80048; 85610; 85730

== ENCOUNTER 2023-03-07 01:39 | Day surgery (SDC) | payer OTHER, SELFPAY ==
--- NOTE | 2023-02-25 11:09 | PC.NURSE ---
Report to the Outpatient Waiting Room, entrance under the green pavilion located off [facility], at time __1000 on date __03/07/23 . Planned Procedure Time: _1200 . Time changes happen often and if your time is changed the preop area will call you the afternoon before. - You and your visitor will be asked to self-screen and do not enter if you have any COVID symptoms. - A mask is optional within the hospital at this time. Patients may have clear liquids (water, carbonated beverages, clear teas, apple juice) until 3 hours prior to surgery with a maximum of 20 ounces. - No food from midnight until time of surgery - Infants may have breast milk until 4 hours before surgery, infant formula 6 hours prior to surgery. - Children will be allowed to drink immediately following surgery. If applicable, please bring a bottle or sippy cup to assist with drinking. Juice, water, soda, and popsicles are readily available. For infants on formula, please bring formula the day of surgery. Pacifiers are allowed. Take the following medications with a SIP of water the morning of surgery: __BREO INHALER,GABAPENTIN,METOPROLOL DO NOT STOP ANY OF YOUR OTHER PRESCRIPTION MEDICATIONS PRIOR TO SURGERY ?EXCEPT THE FOLLOWING Medications to discontinue per physician __ALL VITAMINS/SUPPLEMENT 3 DAYS PRE OP.LAST DOSE03/03/23. ELIQUIS PER DR SILVA Please no make-up, nail romanian, hairspray, perfume, deodorant, or body powder the day of surgery. No jewelry (including any body piercings) or valuables the day of surgery, leave them at home. Please take a shower or bath the night before, or the morning of, surgery with an antibacterial soap. Wear comfortable, loose fitting clothing. Children are encouraged to wear pajamas. - Jewelry must be removed prior to entering the operating room. Rings and piercings that are not removed may be cut off. - The hospital will not accept responsibility for valuables. - Please leave all valuables, including medications, at home the day of surgery. If you are going home after surgery, a licensed local combination truck driver must drive you home. - NO public transportation without another adult if you receive anesthesia. - We recommend that an adult stay with you for 24 hours following discharge. - We also recommend that you do not drive, make important decision, drink alcoholic beverages, or take any drugs that were not prescribed by your health care provider for at least 24 hours after your discharge time. Follow any additional instructions given to you from your surgeon. If you or anyone in your household have experienced Covid symptoms in the past week, please notify your surgeon or the nurse liaison at the phone number below for possible testing. TELEPHONE instructions given to __PATIENT and asked if any additional questions and then verbalized understanding. Patient advised to call surgeon office or pre surgery nurse liaison [phone] if any additional questions.
[2023-02-25 11:43] VITALS: BMI 24.4
[2023-03-07] VITALS (10 sets, daily range): BP systolic 112–181; BP diastolic 59–91; PULSE 42–88; RESP 12–22; TEMP 36.2–36.8; O2SAT 92–100
--- NOTE | 2023-03-07 08:40 | WPDANESEPPF ---
Anes - Initial Pre Proc Eval Procedure: Operation Date: 03/07/23 12:00 Proposed Procedures p Right Shoulder Arthroscopic Rotator Cuff Repair - Lio Valencia MD Date/Time: 03/07/23 08:40 Surgeon: Lio Valencia MD Pre Op Diagnosis: right rotator cuff tear Patient Data Age: 77 Gender: F Height: 1.61 m Weight: 63.55 kg Allergies Allergy/AdvReac Type Severity Reaction Status Date / Time codeine Allergy Intermediate Hallucinati Verified 03/07/23 10:02 ng levofloxacin AdvReac Intermediate Nausea Verified 03/07/23 10:02 lisinopril AdvReac Intermediate Cough Verified 03/07/23 10:02 Home Medications Medication Instructions Recorded Confirmed Type acetaminophen 500 mg capsule 500 mg PO Q6H PRN Pain 11/12/20 03/02/23 History cetirizine 10 mg tablet 10 mg PO DAILY PRN Allergy Symptoms 11/12/20 03/02/23 History cholecalciferol (vitamin D3) 50 50 mcg PO DAILY 11/12/20 03/02/23 History mcg (2,000 unit) capsule vitamin B complex 1 cap PO DAILY 11/12/20 03/02/23 History fluticasone furoate 100 1 inh inhalation DAILY #60 ea 03/19/22 03/02/23 Rx mcg-vilanterol 25 mcg/dose inhalation powder (Breo Ellipta) irbesartan 300 mg tablet 300 mg PO QPM 04/16/22 03/02/23 History clonidine 0.2 mg/24 hr weekly 1 patch transdermal WEEKLY #12 ea 06/30/22 03/02/23 Rx transdermal patch pantoprazole 40 mg tablet,delayed See Rx Instructions .Route 07/04/22 03/02/23 Rx release .COMPLEX #90 tabs allopurinol 300 mg tablet See Rx Instructions .Route 07/21/22 03/02/23 Rx .COMPLEX #90 tabs potassium chloride 10 mEq 10 meq PO DAILY #90 caps 10/19/22 03/02/23 Rx capsule,extended release apixaban 5 mg tablet (Eliquis) 5 mg PO BID 10/27/22 03/02/23 History metoprolol tartrate 50 mg tablet 50 mg PO BID 10/27/22 03/02/23 History estradiol 0.5 mg tablet 0.5 mg PO DAILY #90 tabs 11/01/22 03/02/23 Rx furosemide 40 mg tablet See Rx Instructions .Route 11/30/22 03/02/23 Rx .COMPLEX #90 tabs gabapentin 100 mg capsule 100 mg PO BID 12/27/22 03/02/23 History rosuvastatin 5 mg tablet 5 mg PO .every other day 12/27/22 03/02/23 History Patient hx anesthesia problems: none Family hx anesthesia problems: none Results Review: All pre-operative results and documents have been reviewed as part of the pre-operative evaluation. [facility] Past Medical History Medical History (Updated 03/07/23 @ 08:46 by Twin Diaz MD) A-fib Aortic atherosclerosis Arthritis of foot, right, degenerative BSOM (bilateral serous otitis media) COPD (chronic obstructive pulmonary disease) History of cardiac pacemaker Jul History of stress test Hyperlipemia Hypertension Hypertensive chronic kidney disease with stage 1 through stage 4 chronic kidney disease, or unspecified chronic kidney disease Mixed hyperlipidemia Normal colonoscopy 11/10 Repeat 11/20 Paroxysmal atrial fibrillation Peripheral arterial disease Pulmonary hypertension, unspecified rvsp 51 mmHg Saphenofemoral venous reflux Surgical History Surgical History History of cervical spinal surgery Fusion History of hysterectomy with bilateral oophorectomy History of lobectomy of lung RLL History of rotator cuff surgery Left Hx of hysterectomy Family History Family History Sibling Hypertension Father Heart valve disease Mother CHF (congestive heart failure) Other Arthritis Heart disease High cholesterol Lung cancer Social History Social History Smoking status: Never smoker Second hand tobacco smoke exposure: No Alcohol intake: never Substance use: never Substance use type: does not use Lack of Transportation: No Lack of Food: Never True Current Housing: I Have Housing Concerned About Future Housing: No Difficulty Paying Gas/Electric Bills: No Dif
[2023-03-07] MEDS: ACETAMINOPHEN 500 MG TABLET 1000 MG PO (10:09)
--- NOTE | 2023-03-07 10:30 | WPDHPUPDATE1 ---
History and Physical Update Update Date/Time: 03/07/23 10:30 History and Physical has been reviewed, including an updated exam of the patient. There are NO changes in the patient's condition. Risks, benefits, and alternatives have been discussed and questions answered. Patient agrees to proceed with procedure.
--- NOTE | 2023-03-07 10:51 | ECG_ITS ---
Measurements Intervals [place] Rate: 70 P: 48 TX: 213 QRS: 42 QRSD: 82 T: 16 QT: 382 QTc: 414 Interpretive Statements ELECTRONIC ATRIAL PACEMAKER VENTRICULAR PREMATURE COMPLEX AND FREQUENT ATRIAL PREMATURE COMPLEXES ABNORMAL ECG COMPARED TO ECG 05/10/2021 16:45:31 ATRIAL PACEMAKER NOW PRESENT ATRIAL AND VENTRICULAR PREMATURE COMPLEXES NOW PRESENT Electronically Signed On 03-07-2023 11:06:24 CDT by Lalo Yang D.O.
--- NOTE | 2023-03-07 10:57 | SUR.PREOP ---
Disccussed with Dr Joe regarding slow pulse iof 42 and pacemaker set to 60. Consulted Jarocho Pino Rn from Dr Cruz office. Getting ekg.
[2023-03-07] MEDS: LACTATED RINGERS 1,000 ML 30 ML IV CONT ×2 (11:29→14:54)
[2023-03-07] MEDS: KETOROLAC 15 MG/ML VIAL (*BKC) IV PUSH (11:29)
[2023-03-07 11:53] LABS: Prothrombin Time 14.1 Seconds (11.1-14.7)
[2023-03-07 11:54] LABS: Partial Thromboplastin Time 32.5 SECONDS (22.3-36.8)
--- NOTE | 2023-03-07 12:24 | PM.CNCAR ---
Assessment and Plan Assessment and plan (1) Bradycardia: Code(s): R00.1 - Bradycardia, unspecified Status: Acute Assessment and Plan: Concern for bradycardia because of vital sign measurement of heart rate at 40bpm. She has a normal functioning permanent pacemaker with a low rate limit of 60bpm. EKG shows atrial paced rhythm with frequent PVC's and PAC's with a rate of 77bpm. Low heart rate detected by vital sign machine and manual pulse measurement is pseudobradycardia from frequent ectopic beats. OK to proceed with general anesthesia for rotator cuff surgery as planned. No specific cardiac recommendations to make at this time. Follow up as an outpatient with Dr. Dalal as scheduled. History of Present Illness History of Present Illness Consult date/time: 03/07/23 12:24 Reason For Visit: right rotator cuff tear Narrative: Ana Luisa Desouza is a 77 year old female with a history of atrial fibrillation and PVC's who is s/p [employer] PPM placed in September 2022. This is a patient who presents to the hospital for elective arthroscopic rotator cuff repair. With her routine vital sign check her pulse was recorded as 40bpm. Per RN report her radial pulse was palpated and noted to be 42bpm. We are being asked to see her because of a concern for bradycardia. Patient had a recent pacemaker check that showed normal device functioning with >10 years battery longevity. She denies any chest pain, shortness of breath, syncope, pre-syncope. Does feel palpitations occasionally. Review of Systems Review of Systems: All systems reviewed & are unremarkable except as noted in HPI and below [facility] Past Medical History Medical History (Updated 03/07/23 @ 16:19 by PAIGE Laura) A-fib Aortic atherosclerosis Arthritis of foot, right, degenerative BSOM (bilateral serous otitis media) COPD (chronic obstructive pulmonary disease) History of cardiac pacemaker Jul History of stress test Hyperlipemia Hypertension Hypertensive chronic kidney disease with stage 1 through stage 4 chronic kidney disease, or unspecified chronic kidney disease Mixed hyperlipidemia Normal colonoscopy 11/10 Repeat 11/20 Paroxysmal atrial fibrillation Peripheral arterial disease Pulmonary hypertension, unspecified rvsp 51 mmHg Saphenofemoral venous reflux Surgical History Surgical History History of cervical spinal surgery Fusion History of hysterectomy with bilateral oophorectomy History of lobectomy of lung RLL History of rotator cuff surgery Left Hx of hysterectomy Family History Family History Sibling Hypertension Father Heart valve disease Mother CHF (congestive heart failure) Other Arthritis Heart disease High cholesterol Lung cancer Social History Social History Smoking status: Never smoker Second hand tobacco smoke exposure: No Alcohol intake: never Substance use: never Substance use type: does not use Lack of Transportation: No Lack of Food: Never True Current Housing: I Have Housing Concerned About Future Housing: No Difficulty Paying Gas/Electric Bills: No Difficulty Paying for Meds: No Currently Unemployed: YES Difficulty w/ Childcare or Family Care: No Living arrangements: alone Occupation/Education: retired Gender identity (if verbalized by the patient): Female Sexual Orientation (if Verbalized by the Patient): Straight or Heterosexual Spiritual care concerns: No Agree to blood products: Yes Meds Home Medications and Allergies Home Medications Medication Instructions Recorded Confirmed Type acetaminophen 500 mg capsule 500 mg PO Q6H PRN Pain 11/12/20 03/02/23 History cetirizine 10 mg tablet 10 mg PO DAILY PRN Allergy Symptoms 11/12/20 03/02/23 History cholecalciferol
[2023-03-07] MEDS: ceFAZolin 2 GM/D5W 50 ML 2 GM/50 ML BAG IVPB (12:57)
[2023-03-07] MEDS: BUPIVACAINE/EPINEPHRINE 0.5% 50 ML VIAL 30 ML INFILTRATE (12:58)
[2023-03-07] MEDS: EPINEPHrine HCL INJ 1 MG/ML AMPUL 3 MG IRRIGATION (12:59)
--- NOTE | 2023-03-07 14:26 | P.OP_ITS ---
Procedure Note - Detailed Date of Procedure 03/10/23 Pre-op Diagnosis Right rotator cuff tear Post-op Diagnosis Other (1. Rotator cuff tear 2. Subacromial impingement 3. Biceps tendinosis 4. Degenerative labral tear) Procedure Performed Right shoulder 1. Arthroscopic rotator cuff repair 2. Arthroscopic subacromial decompression 3. Arthroscopic biceps tenotomy and labral debridement Surgeon Lio Valencia MD Biometrics Analyst Mila Poole PA-C Anesthesia General and Regional ( interscalene block) Description of Procedure Preoperative antibiotics were given. An interscalene block was administered in the preoperative area. The patient was bought brought to the operating room. A general anesthetic was administered. The patient was carefully positioned in the lateral decubitus position. The head and neck were carefully positioned. The non operative extremity was also carefully positioned. The shoulder was prepped and draped in the usual sterile fashion. Examination was performed. Standard posterior and anterior arthroscopic portals were established. Inflow achieved with the arthroscopic pump using saline and epinephrine. The glenohumeral joint was carefully inspected. There were mild degenerative changes and some chondral flaps of the humerus. Significant biceps tendinosis treated with tenotomy. Attention was turned to the subacromial space. A complete bursectomy was performed. A large rotator cuff tear was confirmed with mild retraction and significant degenerative tissue. The rotator cuff and footprint were lightly debrided. A modest acromioplasty was performed. The tear configuration was carefully assessed. Two margin convergence sutures were used posteriorly for the reverse L-shaped pattern. Suture limbs from 1 of the sutures was capped for later fixation laterally with a suture anchor. At this point, 2 bone tunnels were created at the rotator cuff. Three sutures were passed through each tunnel. All sutures were then passed through the cuff tissue. A rip stop pattern was used. The sutures were tied arthroscopically. An additional horizontal mattress suture margin convergence was performed posteriorly. The arthroscopic instruments were removed. The wounds were closed with 3-0 Monocryl subcuticular suture and steri strips. There were no complications. A sling was applied and the patient brought to the recovery room. Physician assistant director of plant operations, Mila Poole PA-C, required for surgery; including patient positioning, draping, arthroscopic camera operation, maintaining instrument position, suture retrieval, wound closure, and dressing and sling placement. Implants Arthrex SwiveLock anchor. Estimated Blood Loss 1 IV Fluids 10 Pathology None sent Complications No immediate complications Condition Stable Disposition PACU [facility] Billing Surgery - Charge Forward: Surgery Billing
[2023-03-07] MEDS: fentaNYL CITRATE INJ (*CRX) 100 MCG/2 ML VIAL 25 MCG IV PUSH ×7 (14:41→15:45)
[2023-03-07] MEDS: oxyCODONE HCL (*CRX) 5 MG TAB IR PO (15:55)
== END 2023-03-07 17:06 | disposition home or self-care (01) ==
PROVIDERS: Anesthesiology; PCP Family Medicine; Visit Provider Orthopaedic Surgery
PROC: (CPT 29805; principal; 2023-03-07 12:00)
DX: S46.011A Strain of muscle(s) and tendon(s) of the rotator cuff of right shoulder, initial encounter (principal); M75.41 Impingement syndrome of right shoulder; M75.21 Bicipital tendinitis, right shoulder; M75.81 Other shoulder lesions, right shoulder; W19.XXXA Unspecified fall, initial encounter; J44.9 Chronic obstructive pulmonary disease, unspecified; I12.9 Hypertensive chronic kidney disease with stage 1 through stage 4 chronic kidney disease, or unspecified chronic kidney disease; N18.9 Chronic kidney disease, unspecified; I48.0 Paroxysmal atrial fibrillation; I73.9 Peripheral vascular disease, unspecified; I27.20 Pulmonary hypertension, unspecified; Z95.0 Presence of cardiac pacemaker; E78.5 Hyperlipidemia, unspecified; Z79.01 Long term (current) use of anticoagulants; Z79.51 Long term (current) use of inhaled steroids; Z98.1 Arthrodesis status
CPT/HCPCS: 29827; 29826; 36415; 80048; 85610; 85730; 93005; A4565; A9270; C1713; J0171; J0330; J0690; J1100; J1885; J2370; J2405; J2704; J3010; J7120

== ENCOUNTER 2023-08-01 09:58 | Outpatient (CLI) | payer OTHER, SELFPAY ==
--- NOTE | ~2023-08-01 | MM_ITS ---
EXAMINATION: MM screening iraida BI w eliot HISTORY: Screening mammogram TECHNIQUE: Craniocaudal and mediolateral oblique 3-D tomosynthesis images were obtained and synthetic 2-D images were generated. CAD analysis was submitted and interpreted. COMPARISON: No prior mammogram is available for comparison at this institution. BREAST PARENCHYMAL COMPOSITION: The breasts are heterogeneously dense, which may obscure small masses . FINDINGS: There is no evidence of suspicious mass, calcification, or architectural distortion to sugg est malignancy in either breast. There has been no suspicious interval change. IMPRESSION: 1. No mammographic evidence of malignancy. 2. Recommend routine screening mammography in one year. BI-RADS Category 1: Negative Reviewed, dictated and finalized at location A.
== END 2023-08-01 09:59 | disposition home or self-care (01) ==
LOC: ANHIMG 10:01
PROVIDERS: PCP Family Medicine; Visit Provider Family Medicine
DX: Z12.31 Encounter for screening mammogram for malignant neoplasm of breast (principal)
CPT/HCPCS: 77063; 77067

== ENCOUNTER 2024-02-10 00:29 | Day surgery (SDC) | payer OTHER, SELFPAY ==
[2024-01-31 14:43] VITALS: BMI 24.8
--- NOTE | 2024-02-03 16:08 | PC.NURSE ---
Spoke with PATIENT regarding medication ELIQUIS. Pt. verbalizes understanding that the last dose of ELIQUIS is to be taken on 02/07/2024 and the Endoscopist will instruct them when to restart after the procedure.
[2024-02-10 06:24] VITALS: BP 145/80; PULSE 81; RESP 18; TEMP 36.2; O2SAT 99
[2024-02-10] MEDS: LACTATED RINGERS 1,000 ML 150 ML IV CONT (06:37)
--- NOTE | 2024-02-10 07:14 | P.PNAN_ITS ---
Anes - Initial Pre Proc Eval Procedure: Operation Date: 02/10/24 07:30 Proposed Procedures p Colonoscopy - Elan Stern MD Date/Time: 02/10/24 07:14 Surgeon: Elan Stern MD Pre Op Diagnosis: Other specified symptoms and signs Patient Data Age: 78 Gender: F Height: 1.6 m Weight: 66 kg Last Vital Signs Temp 97.1 F L 02/10/24 06:24 Pulse 81 02/10/24 06:24 Resp 18 02/10/24 06:24 BP 145/80 H 02/10/24 06:24 Pulse Ox 99 02/10/24 06:24 O2 Del Method Room Air 02/10/24 06:24 Allergies Allergy/AdvReac Type Severity Reaction Status Date / Time codeine Allergy Intermediate Hallucinati Verified 02/10/24 06:21 ng levofloxacin AdvReac Intermediate Nausea Verified 02/10/24 06:21 lisinopril AdvReac Intermediate Cough Verified 02/10/24 06:21 Home Medications Medication Instructions Recorded Confirmed Type acetaminophen 500 mg capsule 1,000 - 1,500 mg PO HS Pain 11/12/20 01/31/24 History cetirizine 10 mg tablet 10 mg PO DAILY Allergy Symptoms 11/12/20 01/31/24 History cholecalciferol (vitamin D3) 50 50 mcg PO DAILY 11/12/20 01/31/24 History mcg (2,000 unit) capsule vitamin B complex 1 cap PO DAILY 11/12/20 01/31/24 History apixaban 5 mg tablet (Eliquis) 5 mg PO BID 10/27/22 02/10/24 History metoprolol tartrate 50 mg tablet 50 mg PO BID 10/27/22 01/31/24 History furosemide 40 mg tablet See Rx Instructions .Route 10/08/23 01/31/24 Rx .COMPLEX #90 tabs clonidine 0.2 mg/24 hr weekly 1 patch transdermal WEEKLY #12 ea 11/16/23 01/31/24 Rx transdermal patch potassium chloride 10 mEq See Rx Instructions .Route 01/06/24 01/31/24 Rx capsule,extended release .COMPLEX #90 caps estradiol 0.5 mg tablet 0.5 mg PO DAILY #90 tabs 01/24/24 01/31/24 Rx irbesartan 300 mg tablet 300 mg PO QPM #90 tabs 01/24/24 01/31/24 Rx rosuvastatin 5 mg tablet 5 mg PO .every other day #60 tabs 01/24/24 01/31/24 Rx sodium,potassium,mag sulfates 17.5 See Rx Instructions PO .COMPLEX 01/30/24 01/31/24 Rx gram-3.13 gram-1.6 gram oral soln #354 mL (Suprep Bowel Prep Kit) allopurinol 300 mg tablet 300 mg PO DAILY 01/31/24 01/31/24 History fluticasone furoate 100 1 inh inhalation QPM 01/31/24 01/31/24 History mcg-vilanterol 25 mcg/dose inhalation powder (Breo Ellipta) pantoprazole 40 mg tablet,delayed 40 mg PO DAILY 01/31/24 01/31/24 History release gabapentin 100 mg capsule 100 mg .Route .COMPLEX #120 caps 02/02/24 Rx Patient hx anesthesia problems: none Family hx anesthesia problems: none Results Review: All pre-operative results and documents have been reviewed as part of the pre- operative evaluation. [facility] Past Medical History Medical History (Updated 12/22/23 @ 10:38 by Cecil Land MD) A-fib Aortic atherosclerosis Arthritis of foot, right, degenerative BMI 25.0-25.9,adult BMI 26.0-26.9,adult BSOM (bilateral serous otitis media) COPD (chronic obstructive pulmonary disease) Foot pain, bilateral GERD without esophagitis Gout History of cardiac pacemaker Jul History of stress test Hyperlipemia Hypertension Hypertensive chronic kidney disease with stage 1 through stage 4 chronic kidney disease, or unspecified chronic kidney disease Mixed hyperlipidemia Normal colonoscopy 11/10 Repeat 11/20 Paroxysmal atrial fibrillation Peripheral arterial disease Pulmonary hypertension, unspecified rvsp 51 mmHg Rectal discharge Saphenofemoral venous reflux Surgical History Surgical History H/O blepharoplasty History of arthroscopy of right shoulder (~03/07/23) RCR, SAD, Biceps tenotomy, and Labral MARINO History of cervical spinal surgery Fusion History of hysterectomy with bilateral oophorectomy History of lobectomy of lung RLL History of rotator cuff surgery Left Hx of hysterectomy Family History Family History Sibling Hypertension Father Heart valve disease Dialysis patient Acute myocardial infarction Mother CHF (congestive heart failure) Arthritis Collapsed lung Sibling Tobacco abuse COPD (chronic obstructive pulmonary disease) Other Heart disease High cholesterol Lung cancer Social History Social History Smoking status: Never smoker Second hand tobacco smoke exposure: Yes Alcohol intake: current Substance use: never Substance use type: does not use Do You Feel Safe in your Home?: Yes Lack of Transportation: No Lack of Food: Never True Current Housing: I Have Housing Concerned About Future Housing: No Difficulty Paying Gas/Electric Bills: No Difficulty Paying for Meds: No Currently Unemployed: YES Education: High School Diploma/GED Difficulty w/ Childcare or Family Care: No Living arrangements: with family Occupation/Education: retired 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[employer] Gender identity (if verbalized by the patient): Female Sexual Orientation (if Verbalized by the Patient): Straight or Heterosexual Spiritual care concerns: No Agree to blood products: Yes Anes - Eval Final PreProcedure Day of Procedure 02/10/24 07:14 Patient weight: normal Heart: irregular rhythm Lungs: clear to auscultation Airway: Mallampati scale class II Neurological: alert and oriented Last oral intake: >/= 8 hours ASA classification: III Emergent: no Anesthetic plan: proceed Anesthesia type and monitoring: general GIVS and standard monitoring Results Review: All pre-operative results and documents have been reviewed as part of the pre- operative evaluation. Informed Consent: The patient's anesthetic plan and its attendant risks and benefits were discussed with the patient/family/POA. Questions were solicited and answers provided to the satisfaction of the patient/family/POA.
--- NOTE | 2024-02-10 07:31 | P.HP_ITS ---
History of Present Illness History of Present Illness Consent: Risks, benefits, and alternatives have been discussed and questions answered. Patient agrees to proceed with procedure. Chief complaint: Other specified symptoms and signs Narrative: Ana Luisa Desouza is a 78 year old female here with change of bowel habits, had colonoscopy years ago Review of Systems Review of Systems: All systems reviewed & are unremarkable except as noted in HPI and below PMFSH Past Medical History Medical History (Updated 02/10/24 @ 07:32 by Elan Stern MD) A-fib Aortic atherosclerosis Arthritis of foot, right, degenerative BMI 25.0-25.9,adult BMI 26.0-26.9,adult Bowel habit changes BSOM (bilateral serous otitis media) COPD (chronic obstructive pulmonary disease) Foot pain, bilateral GERD without esophagitis Gout History of cardiac pacemaker Jul History of stress test Hyperlipemia Hypertension Hypertensive chronic kidney disease with stage 1 through stage 4 chronic kidney disease, or unspecified chronic kidney disease Mixed hyperlipidemia Normal colonoscopy 11/10 Repeat 11/20 Paroxysmal atrial fibrillation Peripheral arterial disease Pulmonary hypertension, unspecified rvsp 51 mmHg Rectal discharge Saphenofemoral venous reflux Surgical History Surgical History H/O blepharoplasty History of arthroscopy of right shoulder (~03/07/23) RCR, SAD, Biceps tenotomy, and Labral MARINO History of cervical spinal surgery Fusion History of hysterectomy with bilateral oophorectomy History of lobectomy of lung RLL History of rotator cuff surgery Left Hx of hysterectomy Family History Family History Sibling Hypertension Father Heart valve disease Dialysis patient Acute myocardial infarction Mother CHF (congestive heart failure) Arthritis Collapsed lung Sibling Tobacco abuse COPD (chronic obstructive pulmonary disease) Other Heart disease High cholesterol Lung cancer Social History Social History Smoking status: Never smoker Second hand tobacco smoke exposure: Yes Alcohol intake: current Substance use: never Substance use type: does not use Do You Feel Safe in your Home?: Yes Lack of Transportation: No Lack of Food: Never True Current Housing: I Have Housing Concerned About Future Housing: No Difficulty Paying Gas/Electric Bills: No Difficulty Paying for Meds: No Currently Unemployed: YES Education: High School Diploma/GED Difficulty w/ Childcare or Family Care: No Living arrangements: with family Occupation/Education: retired 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[employer] Gender identity (if verbalized by the patient): Female Sexual Orientation (if Verbalized by the Patient): Straight or Heterosexual Spiritual care concerns: No Agree to blood products: Yes Meds Home Medications and Allergies Home Medications Medication Instructions Recorded Confirmed Type acetaminophen 500 mg capsule 1,000 - 1,500 mg PO HS Pain 11/12/20 01/31/24 History cetirizine 10 mg tablet 10 mg PO DAILY Allergy Symptoms 11/12/20 01/31/24 History cholecalciferol (vitamin D3) 50 50 mcg PO DAILY 11/12/20 01/31/24 History mcg (2,000 unit) capsule vitamin B complex 1 cap PO DAILY 11/12/20 01/31/24 History apixaban 5 mg tablet (Eliquis) 5 mg PO BID 10/27/22 02/10/24 History metoprolol tartrate 50 mg tablet 50 mg PO BID 10/27/22 01/31/24 History furosemide 40 mg tablet See Rx Instructions .Route 10/08/23 01/31/24 Rx .COMPLEX #90 tabs clonidine 0.2 mg/24 hr weekly 1 patch transdermal WEEKLY #12 ea 11/16/23 01/31/24 Rx transdermal patch potassium chloride 10 mEq See Rx Instructions .Route 01/06/24 01/31/24 Rx capsule,extended release .COMPLEX #90 caps estradiol 0.5 mg tablet 0.5 mg PO DAILY #90 tabs 01/24/24 01/31/24 Rx irbesartan 300 mg tablet 300 mg PO QPM #90 tabs 01/24/24 01/31/24 Rx rosuvastatin 5 mg tablet 5 mg PO .every other day #60 tabs 01/24/24 01/31/24 Rx sodium,potassium,mag sulfates 17.5 See Rx Instructions PO .COMPLEX 01/30/24 01/31/24 Rx gram-3.13 gram-1.6 gram oral soln #354 mL (Suprep Bowel Prep Kit) allopurinol 300 mg tablet 300 mg PO DAILY 01/31/24 01/31/24 History fluticasone furoate 100 1 inh inhalation QPM 01/31/24 01/31/24 History mcg-vilanterol 25 mcg/dose inhalation powder (Breo Ellipta) pantoprazole 40 mg tablet,delayed 40 mg PO DAILY 01/31/24 01/31/24 History release gabapentin 100 mg capsule 100 mg .Route .COMPLEX #120 caps 02/02/24 Rx Allergies Allergy/AdvReac Type Severity Reaction Status Date / Time codeine Allergy Intermediate Hallucinati Verified 02/10/24 06:21 ng levofloxacin AdvReac Intermediate Nausea Verified 02/10/24 06:21 lisinopril AdvReac Intermediate Cough Verified 02/10/24 06:21 Vital Signs Vital Signs - 24 hr 02/10/24 06:24 Temperature 97.1 F L Pulse Rate 81 Respiratory Rate 18 Blood Pressure 145/80 H Pulse Oximetry 99 Oxygen Delivery Room Air Exam Const: General: comfortable and no acute distress HENMT: Face/Nose/Sinus: Normal nares present Eyes: General: appearance normal, both eyes and all related structures Neck: Neck: no JVD Resp: Auscultation: clear to auscultation bilaterally Cardio: Rate: regular rate Rhythm: regular rhythm GI: Inspection: non-distended GI Palp: Yes Soft to palpation Skin: General skin exam: normal color Neuro: General: gait normal Speech: normal speech Extrem: General: normal to inspection Psych: Mental Status: mental status grossly normal Assessment and Plan Assessment and plan (1) Bowel habit changes: Code(s): R19.4 - Change in bowel habit Status: Acute Assessment and Plan: colonoscopy
[2024-02-10 07:52] VITALS: BP 107/51; PULSE 62; RESP 15; O2SAT 99
[2024-02-10 08:02] VITALS: BP 132/61; PULSE 60; RESP 20; O2SAT 100
[2024-02-10 08:12] VITALS: BP 138/67; PULSE 61; RESP 19; O2SAT 99
== END 2024-02-10 08:13 | disposition home or self-care (01) ==
PROVIDERS: PCP Family Medicine; Visit Provider Internal Medicine Gastroenterology
PROC: 0DJD8ZZ Inspection of Lower Intestinal Tract, Via Natural or Artificial Opening Endoscopic (ICD-10-PCS; CPT 45378; principal; 2024-02-10 07:30)
DX: K57.30 Diverticulosis of large intestine without perforation or abscess without bleeding (principal); K64.8 Other hemorrhoids; I48.91 Unspecified atrial fibrillation; J44.9 Chronic obstructive pulmonary disease, unspecified; I12.9 Hypertensive chronic kidney disease with stage 1 through stage 4 chronic kidney disease, or unspecified chronic kidney disease; N18.9 Chronic kidney disease, unspecified; K21.9 Gastro-esophageal reflux disease without esophagitis; E78.2 Mixed hyperlipidemia; I48.0 Paroxysmal atrial fibrillation; I73.9 Peripheral vascular disease, unspecified; I27.20 Pulmonary hypertension, unspecified; M10.9 Gout, unspecified; Z98.1 Arthrodesis status; Z79.01 Long term (current) use of anticoagulants
CPT/HCPCS: 45378; J7120

== ENCOUNTER 2024-09-13 09:54 | Outpatient (CLI) | payer OTHER, SELFPAY ==
--- NOTE | ~2024-09-13 | MM_ITS ---
EXAMINATION: MM screening iraida BI w eliot HISTORY: Screening mammogram TECHNIQUE: Craniocaudal and mediolateral oblique 3-D tomosynthesis images were obtained and synthetic 2-D images were generated. CAD analysis was submitted and interpreted. COMPARISON: 08/01/2023, 05/26/2022 BREAST PARENCHYMAL COMPOSITION:Dense: The breasts are heterogeneously dense, which may obscure small masses. FINDINGS: No suspicious mass, calcification, or architectural distortion are identified in either bill ast to suggest malignancy. There has been no suspicious interval change. IMPRESSION: No mammographic evidence of malignancy. Recommend routine screening mammography in one year. BI-RADS Category 1: Negative Reviewed, dictated and finalized at location . ER OFF
== END 2024-09-13 09:55 | disposition home or self-care (01) ==
LOC: ANHIMG 09:55
PROVIDERS: PCP Family Medicine; Visit Provider Family Medicine
DX: Z12.31 Encounter for screening mammogram for malignant neoplasm of breast (principal)
CPT/HCPCS: 77063; 77067

== ENCOUNTER 2024-12-04 12:17 | Outpatient (CLI) | payer OTHER, SELFPAY ==
--- NOTE | ~2024-12-04 | XR_ITS ---
Left foot Technique: AP and lateral views were obtained. Clinical History: Rheumatoid arthritis Findings: No acute fracture or dislocation is seen. Osseous alignment is anatomic. Joint spaces are p reserved without erosive or degenerative change. Soft tissues are unremarkable. Impression: Unremarkable left foot radiographs. Reviewed, dictated and finalized at location . ET MAKER PORK Impression: Unremarkable left foot radiographs.
--- NOTE | ~2024-12-04 | XR_ITS ---
HISTORY: Rheumatoid arthritis COMPARISON: None TECHNIQUE: 3 views of the bilateral hands were performed. FINDINGS: No acute fracture is identified. Significant degenerative disease is identified within the bilateral hands. Specifically, the first carpometacarpal joint space with erosion and sclerosis of the adjacent bone Gullwing deformity is identified within the proximal interphalangeal joint spaces of the second, thir d, fourth and fifth digits of the left and within the second third and fourth digits on the right. The carpal arcs are intact. Significant radiocarpal joint space narrowing with sclerosis of the distal radius is present. Juxta-articular osteopenia is present. Fusiform swelling is identified within the second digit, bilaterally. Bone displacement of the middle phalanx of the right third digit is present. No radiopaque foreign body is identified. Chondrocalcinosis is identified within the ulna carpal joint space on the right. IMPRESSION: Significant degenerative disease detected bilaterally, as detailed above. Reviewed, dictated and finalized at location A. ET SECOND PRESS OPERATOR
--- NOTE | ~2024-12-04 | XR_ITS ---
Right foot Technique: AP and lateral views were obtained. Clinical History: Rheumatoid arthritis Findings: No acute fracture or dislocation is seen. Osseous alignment is anatomic. Probable moderate osteoarthritic changes at the TMT joints. Soft tissues are unremarkable. Impression: Moderate probable osteoarthritic change at the TMT joints. Reviewed, dictated and finalized at [facility]. SEWING MACHINE OPERATOR Impression: Moderate probable osteoarthritic change at the TMT joints.
== END 2024-12-04 12:18 | disposition home or self-care (01) ==
LOC: MICIMG 12:19
PROVIDERS: PCP Internal Medicine; Visit Provider Internal Medicine
DX: M19.042 Primary osteoarthritis, left hand (principal); M19.041 Primary osteoarthritis, right hand; M06.872 Other specified rheumatoid arthritis, left ankle and foot; M06.871 Other specified rheumatoid arthritis, right ankle and foot
CPT/HCPCS: 73130; 73620

== ENCOUNTER 2025-02-01 11:00 | Outpatient (RCR) | payer OTHER, SELFPAY ==
--- NOTE | 2024-12-31 12:01 | OPREHPOC ---
Outpatient Therapy Plan of Care This is a Multidisciplinary Plan of Care that may contain components documented by all disciplines (PT, OT, and ST.) PT Problem 1 PT Problem #1 Knowledge Deficit PT Goal 1 Goal / Goal Update *indep with HEP Target Visit 8 PT Problem 2 PT Problem #2 Pain PT Goal 1 Goal / Goal Update * pt report pain at worst of bilateral feet/ankles of 5/10 Target Visit 8 PT Problem 3 PT Problem #3 Impaired Strength PT Goal 1 Goal / Goal Update increase strength of bilateral LE's, to improve mobility and balance: 1* pt perform 20 reps of mat exercises 2* pt perform standing bilateral PF with 1 UE support x 20 reps 3* transfer sit/stand with use of 1 UE Target Visit 8 PT Problem 4 PT Problem #4 Impaired Functional Mobility PT Goal 1 Goal / Goal Update * 2 minute walking test distance of 320' Target Visit 8
--- NOTE | 2024-12-31 12:02 | PTOPEVAL1 ---
Assessment and note entered by Arleth Baird, PT Evaluation Information Assessment Status Evaluation ICD-10 Condition Codes (PT) Difficulty Walking R26.2,Abnormalities of gait and mobility R26.9,Weakness R53.1 Other ICD-10 Condition Codes ( M79.671 pain R foot;M79.672 pain L foot; G60. PT) 9neuropathy Onset several years Subjective Information gradually having more pain and issues with walking due to neuropathy in feet; have not had any falls but have lost balance and wobbly; have problems with bending to the floor and squatting; Medical history includes: pacemaker, PAD, bone spurs removed both feet; activity: live alone; does all home and self care tasks--problems cleaning floors and reaching to floor; like to read; does her grocery shopping- leans on the cart to walk; have basement, rarely go down stairs; does not do any regular exercises Reported Pain Level Pain Score Self Report Additional Pain Score Comments pain range in the past week 0- 7/10; both feet and ankles: tingles, sharp pain, aches, cold all the time; decrease pain: when wake up in the morning, rest/ elevate increase pain: 15-20 minutes of home walking/ standing; squatting when standing taking gabapentin have swelling in her legs: just above ankle Assessment PT Clinical Summary Ana Luisa has the diagnosis of bilateral ankle and foot pain. LE functional scale rating of 64% limitation in activity level. She is not very active and limited activity due to pain in feet. Reports standing/walking tolerance of 15-20 minutes then have to sit and rest. She has not had any falls, but is wobbly with walking and goes slow. With the evaluation: she has decreased strength of bilateral hips and ankles, with decreased ankle DF and PF ROM; 5 reps sit/stand time of 27 seconds and using both UE; 2 minute walking test distance of 270' and on stairs requires use of both hand rails. Skilled PT services are indicated to increase LE strength, gait and balance skills, to improve mobility and safety. Education for HEP and gait pattern. Plan of Care Interventions Gait Training,Neuro Re-education,Patient/Caregiver Education,Therapeutic Activities,Therapeutic Exercise PT Services Indicated Yes Treatment Frequency and 1-2x/wk for 8 visits Duration These treatments will address the objective and functional deficits as defined above. The patient will be advanced safely and appropriately in order for the patient to progress towards his/her prior level of function. Additional exercises will be introduced and as well as a comprehensive home exercise program upon discharge, if needed, ?to ensure carryover of functional gains achieved in the clinic. This treatment plan has been reviewed and agreement upon by the patient.
--- NOTE | 2025-01-03 11:33 | PCPTNOTE ---
Pt. did not show for her Physical Therapy appointment this date. Called and left a voicemail reminding pt. of her next upcoming appointment and let her know to call if she had any questions.
--- NOTE | 2025-02-01 11:54 | PTOPDC ---
Assessment and note entered by Arleth Baird, PT Assessment Status Discharge ICD-10 Condition Codes (PT) Difficulty Walking R26.2,Abnormalities of gait and mobility R26.9,Weakness R53.1 Other ICD-10 Condition Codes ( M79.671 pain R foot;M79.672 pain L foot; G60. PT) 9neuropathy Onset several years Subjective Information doing better since coming for therapy- stronger in ankles and feet; when squatted to pick something up off floor, ankle bending did not hurt as much; feet still hurt and tingle; does not want to use a walker; ready to be done with therapy. Reported Pain Level Pain Score Self Report Additional Pain Score Comments pain range in the past week 3-6/10; neuropathy pain; Assessment PT Clinical Summary Ana Luisa has received 7 PT sessions. Compared to the initial evaluation: pain rating from 0-7/10 to 3-6/10; 2 minute walking test distance from 270' to 365'; increased strength of LE's with mat and standing exercises; education completed for HEP. The goals were achieved, except pain rating at worst. Discharge PT services. She is to continue with her HEP and activity as tolerated. Plan of Care PT Services Indicated No
== END 2025-02-01 13:57 | disposition home or self-care (01) ==
LOC: ANHPT 11:00
PROVIDERS: PCP Internal Medicine; Visit Provider Family Medicine
DX: M79.671 Pain in right foot (principal); M79.672 Pain in left foot; M50.30 Other cervical disc degeneration, unspecified cervical region; G60.9 Hereditary and idiopathic neuropathy, unspecified
CPT/HCPCS: 97110; 97112; 97161; 97530

== ENCOUNTER 2025-10-08 09:31 | Outpatient (CLI) | payer OTHER, SELFPAY ==
[2025-10-08 09:50] LABS: Hematocrit 33.2 % (37.0-47.0); Hemoglobin 10.5 g/dL (12.0-15.0); Immature Granulocyte Percent A 1.4 % (0-0.5); Lymphocytes Absolute Auto 1.52 K/mm3 (0.9-3.2); Mean Corpuscular HGB Conc 31.6 g/dl (32-36); Mean Corpuscular Hemoglobin 31.3 pg (26-34); Mean Corpuscular Volume 99.1 fl (80-100); Nucleated Red Blood Cells Absolute Auto 0.020 K/mm3 (0.0-0.012); Nucleated Red Blood Cells Perc 0.4 % (0.0-0.2); Platelet Count Result 277 k/mm3 (150-375); Red Blood Count 3.35 M/mm3 (4.2-5.4); White Blood Count 5.6 K/mm3 (4.5-10.0)
[2025-10-08 10:15] LABS: Alanine Aminotransferase 18 U/L (6-35); Albumin Level 4.0 g/dL (3.5-5.1); Alkaline Phosphatase 72 U/L (38-126); Anion Gap 9 mmol/L (4-12); Aspartate Amino Transferase 26 U/L (14-36); Bilirubin,Total 0.9 mg/dL (0.2-1.3); Blood Urea Nitrogen 46 mg/dL (7-17); Calcium 10.7 mg/dL (8.4-10.2); Carbon Dioxide 25 mmol/L (22-30); Chloride 105 mmol/L (98-107); Estimated Glomerular Filt Rate 7; Glucose 100 mg/dL (65-110); Potassium 3.8 mmol/L (3.4-5.0); Sodium 139 mmol/L (137-145); Total Protein 6.7 g/dL (6.3-8.2)
--- OUTSIDE RECORDS SUMMARY | 2025-10-08 10:41 | XMS_ITS | Encounter Summary ---
Author Organization [facility] Medical Group Address [address] [place] [address] Care Team Providers Care Apprentice Name Role Phone Amadeo Paulson MD Primary Care Prov ider Miscellaneous, Not In File Unavailable Unava Cecil Green MD Primary Care Provider [phone] Encounter Details Date Type Department Care Team (Late st Contact Info) Description 02/14/2017 Orders Only [facility] ProviderTeddy MD [address] [place], [place] [id number] Social History Tobacco Use Types Packs/Day Years Used Date Smoking Tobacco: Never Alcohol Use Standard Drinks/Week Comments No 0 (1 standard drink = 0.6 oz pur e alcohol) Comments Unknown Sex and Gender Information Value Date Recorded Sex Assigned at Not on file Legal Sex Female 9:18 PM BIOMEDICAL ELECTRONICS TECHNICIAN Gender Identity Female 03/01/2020 6:35 PM CDT Sexual Orientation Straight 09/02/2020 11 :24 AM BIOMEDICAL ELECTRONICS TECHNICIAN documented as of this encounter Plan of Treatment Not on file documented as of this encounter Procedures Procedure Name Priority Date/Time Associated Diagnosis Comments CARDIOLOGY REPORT 02/14/2017 documented in this encounter Results * CARDIOLOGY REPORT (02/14/2017) Anatomical Region Laterality Modality Other Narrative 02/14/2017 Ordered by an unspecified provider. Historical Provider [facility] [place] Final Result documented in this encounter Visit Diagnoses Not on filedocumented in this encounter Additional Health Concerns Infection Onset Date Last Indicated Resolved Time COVID: Suspected 11/28/2022 11/28/2022 11/28/2022 11:16 PM BIOMEDICAL ELECTRONICS TECHNICIAN COVID19 11/28/2022 11/28/2022 12/08/2022 3:05 AM BIOMEDICAL ELECTRONICS TECHNICIAN COVID: Recovered Comment:Added based on recent COVID infection. 12/08/2022 01/05/2023 03/08/2023 3:05 AM C DT documented as of this encounter Care Teams Apprentice Relationship Specialty Start Date End Date Amadeo Paulson MD PCP - General 01/21/17 05/05/23 Cecil Land MD PCP - General Family Medicine 05/06/23 Miscellaneous, Not In File 09/30/22 documented as of this encounter
--- OUTSIDE RECORDS SUMMARY | 2025-10-08 10:41 | XMS_ITS | Encounter Summary ---
Author Organization [facility] Healthcare Address [address] [place] [address] Care Team Providers Care Professor Of German Name Role Phone Amadeo Paulson MD Primary Care Prov ider Miscellaneous, Not In File Unavailable Unava Cecil Green MD Primary Care Provider [phone] Encounter Details Date Type Department Care Team (Late st Contact Info) Description 11/01/2017 Orders Only [facility] Health Information Management [address] [place] [id number] Scanning, Provider Social History Tobacco Use Types Packs/Day Years Used Date Smoking Tobacco: Never Smokeless Tobacco: Never Alcohol Use Standard Drinks/Week Comments No 0 (1 standard drink = 0.6 oz pur e alcohol) Comments Unknown Sex and Gender Information Value Date Recorded Sex Assigned at Not on file Legal Sex Female 9:18 PM WIRE BRUSHER Gender Identity Female 03/01/2020 6:35 PM CDT Sexual Orientation Straight 09/02/2020 11 :24 AM WIRE BRUSHER documented as of this encounter Plan of Treatment Not on file documented as of this encounter Procedures Procedure Name Priority Date/Time Associated Diagnosis Comments SCAN - RADIOLOGY/IMAGING 11/01/2017 documented in this encounter Results * SCAN - RADIOLOGY/IMAGING (11/01/2017) Anatomical Region Laterality Modality Other us Provider Scanning Final Result documented in this encounter Visit Diagnoses Not on filedocumented in this encounter Additional Health Concerns Infection Onset Date Last Indicated Resolved Time COVID: Suspected 11/28/2022 11/28/2022 11/28/2022 11:16 PM WIRE BRUSHER COVID19 11/28/2022 11/28/2022 12/08/2022 3:05 AM WIRE BRUSHER COVID: Recovered Comment:Added based on recent COVID infection. 12/08/2022 01/05/2023 03/08/2023 3:05 AM C DT documented as of this encounter Care Teams Professor Of German Relationship Specialty Start Date End Date Amadeo Paulson MD PCP - General 01/21/17 05/05/23 Cecil Land MD PCP - General Family Medicine 05/06/23 Miscellaneous, Not In File 09/30/22 documented as of this encounter
--- OUTSIDE RECORDS SUMMARY | 2025-10-08 10:41 | XMS_ITS | Encounter Summary ---
Author Organization [facility] Medical Group Address [address] [place] [id number] Care Team Providers Care Plating Inspector Name Role Phone Amadeo Paulson MD Primary Care Prov ider Amadeo Paulson MD Primary Care Prov ider Miscellaneous, Not In File Unavailable Unava Cecil Green MD Primary Care Provider [phone] Encounter Details Date Type Department Care Team (Late st Contact Info) Description 01/03/2017 Orders Only [facility] ProviderTeddy MD [address] [place] [id number] Social History Tobacco Use Types Packs/Day Years Used Date Smoking Tobacco: Never Alcohol Use Standard Drinks/Week Comments No 0 (1 standard drink = 0.6 oz pur e alcohol) Comments Unknown Sex and Gender Information Value Date Recorded Sex Assigned at Not on file Legal Sex Female 9:18 PM INVESTMENTS MANAGER Gender Identity Female 03/01/2020 6:35 PM CDT Sexual Orientation Straight 09/02/2020 11 :24 AM INVESTMENTS MANAGER documented as of this encounter Plan of Treatment Not on file documented as of this encounter Procedures Procedure Name Priority Date/Time Associated Diagnosis Comments CARDIOLOGY REPORT 01/03/2017 documented in this encounter Results * CARDIOLOGY REPORT (01/03/2017) Anatomical Region Laterality Modality Other Narrative 01/03/2017 Ordered by an unspecified provider. us Historical Provider [facility] [place] Final Result documented in this encounter Visit Diagnoses Not on filedocumented in this encounter Additional Health Concerns Infection Onset Date Last Indicated Resolved Time COVID: Suspected 11/28/2022 11/28/2022 11/28/2022 11:16 PM INVESTMENTS MANAGER COVID19 11/28/2022 11/28/2022 12/08/2022 3:05 AM INVESTMENTS MANAGER COVID: Recovered Comment:Added based on recent COVID infection. 12/08/2022 01/05/2023 03/08/2023 3:05 AM C DT documented as of this encounter Care Teams Plating Inspector Relationship Specialty Start Date End Date Amadeo Paulson MD PCP - General 01/21/17 05/05/23 Amadeo Paulson MD PCP - General 11/08/16 01/20/17 Cecil Land MD PCP - General Family Medicine 05/06/23 Miscellaneous, Not In File 09/30/22 documented as of this encounter
--- OUTSIDE RECORDS SUMMARY | 2025-10-08 10:41 | XMS_ITS | Encounter Summary ---
Author Organization [facility] Healthcare Address [address] [place] [address] Care Team Providers Care Computer Hardware Developer Name Role Phone Amadeo Paulson MD Primary Care Prov ider Miscellaneous, Not In File Unavailable Unava Cecil Green MD Primary Care Provider [phone] Encounter Details Date Type Department Care Team (Late st Contact Info) Description 06/13/2018 Orders Only [facility] Information Management [address] [place] [id number] Scanning, Provider Social History Tobacco Use Types Packs/Day Years Used Date Smoking Tobacco: Never Smokeless Tobacco: Never Alcohol Use Standard Drinks/Week Comments No 0 (1 standard drink = 0.6 oz pur e alcohol) Comments Unknown Sex and Gender Information Value Date Recorded Sex Assigned at Not on file Legal Sex Female 9:18 PM HEALTH INFORMATION CODER Gender Identity Female 03/01/2020 6:35 PM CDT Sexual Orientation Straight 09/02/2020 11 :24 AM HEALTH INFORMATION CODER documented as of this encounter Plan of Treatment Not on file documented as of this encounter Procedures Procedure Name Priority Date/Time Associated Diagnosis Comments CARDIOLOGY DOCUMENT SCAN 06/13/2018 documented in this encounter Results * Cardiology Document Scan (06/13/2018) Anatomical Region Laterality Modality Other us Provider Scanning [facility] PROCEDURES Final Result documented in this encounter Visit Diagnoses Not on filedocumented in this encounter Additional Health Concerns Infection Onset Date Last Indicated Resolved Time COVID: Suspected 11/28/2022 11/28/2022 11/28/2022 11:16 PM HEALTH INFORMATION CODER COVID19 11/28/2022 11/28/2022 12/08/2022 3:05 AM HEALTH INFORMATION CODER COVID: Recovered Comment:Added based on recent COVID infection. 12/08/2022 01/05/2023 03/08/2023 3:05 AM C DT documented as of this encounter Care Teams Computer Hardware Developer Relationship Specialty Start Date End Date Amadeo Paulson MD PCP - General 01/21/17 05/05/23 Cecil Land MD PCP - General Family Medicine 05/06/23 Miscellaneous, Not In File 09/30/22 documented as of this encounter
--- OUTSIDE RECORDS SUMMARY | 2025-10-08 10:41 | XMS_ITS | Encounter Summary ---
Author Organization [facility] Address [address] [facility] [address] [place] [address] Care Team Providers Care Dairy Science Teacher Name Role Phone Amadeo Paulson MD Primary Care Prov ider Amadeo Paulson MD Primary Care Prov ider Miscellaneous, Not In File Unavailable Unava Cecil Green MD Primary Care Provider [phone] Encounter Details Date Type Department Care Team (Late st Contact Info) Description 11/25/2016 Orders Only [facility] ProviderTeddy MD [address] [place] [id number] Social History Tobacco Use Types Packs/Day Years Used Date Smoking Tobacco: Never Alcohol Use Standard Drinks/Week Comments No 0 (1 standard drink = 0.6 oz pur e alcohol) Comments Unknown Sex and Gender Information Value Date Recorded Sex Assigned at Not on file Legal Sex Female 9:18 PM COMMERCIAL CREDIT PORTFOLIO MANAGER Gender Identity Female 03/01/2020 6:35 PM CDT Sexual Orientation Straight 09/02/2020 11 :24 AM COMMERCIAL CREDIT PORTFOLIO MANAGER documented as of this encounter Plan of Treatment Not on file documented as of this encounter Procedures Procedure Name Priority Date/Time Associated Diagnosis Comments CARDIOLOGY REPORT 11/25/2016 documented in this encounter Results * CARDIOLOGY REPORT (11/25/2016) Anatomical Region Laterality Modality Other Narrative 11/25/2016 Ordered by an unspecified provider. us Historical Provider [facility] Final Result documented in this encounter Visit Diagnoses Not on filedocumented in this encounter Additional Health Concerns Infection Onset Date Last Indicated Resolved Time COVID: Suspected 11/28/2022 11/28/2022 11/28/2022 11:16 PM COMMERCIAL CREDIT PORTFOLIO MANAGER COVID19 11/28/2022 11/28/2022 12/08/2022 3:05 AM COMMERCIAL CREDIT PORTFOLIO MANAGER COVID: Recovered Comment:Added based on recent COVID infection. 12/08/2022 01/05/2023 03/08/2023 3:05 AM C DT documented as of this encounter Care Teams Dairy Science Teacher Relationship Specialty Start Date End Date Amadeo Paulson MD PCP - General 01/21/17 05/05/23 Amadeo Paulson MD PCP - General 11/08/16 01/20/17 Cecil Land MD PCP - General Family Medicine 05/06/23 Miscellaneous, Not In File 09/30/22 documented as of this encounter
--- OUTSIDE RECORDS SUMMARY | 2025-10-08 10:41 | XMS_ITS | Encounter Summary ---
Author Organization [facility] Address [address] [address] Care Team Providers Care Sap Bw Consultant Name Role Phone Amadeo Paulson MD Primary Care Prov ider Amadeo Paulson MD Primary Care Prov ider Amadeo Paulson MD Primary Care Prov ider Miscellaneous, Not In File Unavailable Unava Cecil Green MD Primary Care Provider [phone] Encounter Details Date Type Department Care Team (Late st Contact Info) Description 10/17/2016 Orders Only [facility] ProviderTeddy MD [address] [place] [address] Social History Tobacco Use Types Packs/Day Years Used Date Smoking Tobacco: Never Alcohol Use Standard Drinks/Week Comments No 0 (1 standard drink = 0.6 oz pur e alcohol) Comments Unknown Sex and Gender Information Value Date Recorded Sex Assigned at Not on file Legal Sex Female 9:18 PM UNEMPLOYMENT INSURANCE HEARING OFFICER Gender Identity Female 03/01/2020 6:35 PM CDT Sexual Orientation Straight 09/02/2020 11 :24 AM UNEMPLOYMENT INSURANCE HEARING OFFICER documented as of this encounter Plan of Treatment Not on file documented as of this encounter Procedures Procedure Name Priority Date/Time Associated Diagnosis Comments CARDIOLOGY REPORT 10/17/2016 documented in this encounter Results * CARDIOLOGY REPORT (10/17/2016) Anatomical Region Laterality Modality Other Narrative 10/17/2016 Ordered by an unspecified provider. us Historical Provider [facility] Final Result documented in this encounter Visit Diagnoses Not on filedocumented in this encounter Additional Health Concerns Infection Onset Date Last Indicated Resolved Time COVID: Suspected 11/28/2022 11/28/2022 11/28/2022 11:16 PM UNEMPLOYMENT INSURANCE HEARING OFFICER COVID19 11/28/2022 11/28/2022 12/08/2022 3:05 AM UNEMPLOYMENT INSURANCE HEARING OFFICER COVID: Recovered Comment:Added based on recent COVID infection. 12/08/2022 01/05/2023 03/08/2023 3:05 AM C DT documented as of this encounter Care Teams Sap Bw Consultant Relationship Specialty Start Date End Date Amadeo Paulson MD PCP - General 01/21/17 05/05/23 Amadeo Paulson MD PCP - General 11/08/16 01/20/17 Amadeo Paulson MD PCP - General 09/30/15 11/07/16 Cecil Land MD PCP - General Family Medicine 05/06/23 Miscellaneous, Not In File 09/30/22 documented as of this encounter
--- OUTSIDE RECORDS SUMMARY | 2025-10-08 10:41 | XMS_ITS | Clinical Summary ---
Author Organization [facility] Address [address] [place] [address] Care Team Providers Care Purchase Analyst Name Role Phone Miscellaneous, Not In File Unavailable Unava Cecil Green MD Primary Care Provider [phone] Allergies Active Allergy Reactions Criticality Noted Date Comments Codeine Rash Medium Medications cholecalciferol (VITAMIN D-3) 2,000 unit capsule Take 1 capsule (2,000 Units total) by mouth daily Active b complex vitamins capsule Take 1 capsule by mouth daily Active acetaminophen (TYLENOL) 500 mg tablet Take 1 tablet (500 mg total) by mouth every 6 (six) hours as needed for pain Takes 3 tabs every night Active cetirizine (ZyrTEC) 10 mg tablet Take 1 tablet (10 mg total) by mouth daily Active cloNIDine (CATAPRES-TTS) 0.2 mg/[address] 1 patch on the skin once a week Tuesday Active estradiol (ESTRACE) 0.5 mg tablet Take 1 tablet (0.5 mg total) by mouth daily Active pantoprazole DR (PROTONIX) 40 mg EC tablet Take 1 tablet (40 mg total) by mouth daily 0 Active gabapentin (NEURONTIN) 100 mg capsule Take 2 capsules (200 mg total) by mouth 2 (two) times a day 200 mg tid 1 Active allopurinoL (ZYLOPRIM) 300 mg tablet Take 1 tablet (300 mg total) by mouth daily Active potassium chloride ER (KLOR-CON) 10 mEq CR tablet Take 1 tablet/capsule (10 mEq total) by mouth daily Active furosemide (LASIX) 40 mg tablet Take 1 tablet (40 mg total) by mouth daily 1 Active Breo Ellipta 100-25 mcg/dose diskus inhaler 2 Active rosuvastatin (CRESTOR) 5 mg tablet Take 1 tablet (5 mg total) by mouth every other day 45 tablet 3 3 Active irbesartan (AVAPRO) 300 mg tablet Take 1 tablet (300 mg total) by mouth daily 90 tablet 3 3 Active Eliquis 5 mg tablet TAKE 1 TABLET BY MOUTH TWICE A DAY 180 tablet 3 5 Active hydroxychloroqu ine (PLAQUENIL) 200 mg tablet Take 2 tablets (400 mg total) by mouth daily 5 Active metoprolol tartrate (LOPRESSOR) 50 mg immediate release tablet TAKE 1 TABLET BY MOUTH TWICE A DAY 180 tablet 5 Active Active Problems Problem Noted Date Diagnosed Date NSVT (nonsustained ventricular tachycardia) 04/2023 Cardiac pacemaker in situ 10/05/2022 Overview (05/06/2025): Medtronic DDD Ann MRI pacemaker implanted on 09/30/22 for Symptomatic Bradycardia, Afib. Jarret/Che - [facility] 05/06/25-transferred to [facility]. Cardiac arrhythmia 09/21/2022 Overview (09/21/2022): Added automatically from request for surgery [id number] Myalgia 03/19/2022 Medication side effects 03/19/2022 Mixed hyperlipidemia 10/02/2021 Bruit of left carotid artery 10/02/2021 Numbness and tingling of both feet 07/09/2021 MARINELLI (dyspnea on exertion) 05/07/2021 Symptomatic PVCs 03/06/2021 Ventricular bigeminy 03/06/2021 Nonrheumatic mitral valve regurgitation 01/01/20 21 Palpitations 12/06/2018 Other chest pain 12/06/2018 Paroxysmal atrial fibrillation 08/02/2018 Overview (08/02/2018): Added automatically from request for surgery [id number] Pulmonary HTN 07/26/2018 Nonrheumatic aortic valve insufficiency 07/26/20 18 Chronic fatigue 05/10/2018 Atrial flutter (CMS/HCC) 05/10/2018 PVD (peripheral vascular disease) 03/10/2018 Nocturia more than twice per night 01/27/2018 Pain in both lower extremities 10/28/2017 Venous stasis 10/28/2017 Low vitamin D level 04/27/2017 Exercise-induced bronchospasm 12/12/2015 Overview (01/27/2017): Exercise induced bronchospasm Edema of lower extremity 09/30/2015 Overview (01/27/2017): Bilateral lower extremity edema Chronic anticoagulation 09/30/2015 Overview (01/27/2017): Chronic anticoagulation Insomnia 08/25/2015 Overview (01/27/2017): Insomnia due to stress Essential hypertension 08/25/2015 Overview (01/27/2017): Essential hypertension Chronic fatigue syndrome 08/25/2015 Overview (01/27/2017): Chronic fatigue Resolved Problems Problem Noted Date Diagnosed Date Resolved Date Encounter for monitoring sotalol therapy 05/10/2018 10/09/2020 Dyslipidemia 05/10/2018 10/02/2021 Status post placement of imp lantable loop recorder 06/10/2017 10/05/2022 Overview (07/09/2019): Medtronic Reveal Loop Recorder Dx; Management of Af. DOI 07/09/2019. [facility] remote home monitoring. Atrial fibrillation (CMS/HCC) 08/25/2015 10/02/2021 Overview (01/27/2017): Atrial fibrillation, currently in sinus rhythm Surgical History Surgery Date Site/Laterality Comments LUNG SURGERY 1970's Right CARPAL TUNNEL RELEASE Bilateral HYSTERECTOMY COLON SURGERY colon resection BILATERAL SALPINGOOPHORECTOMY FOOT SURGERY Bilateral bone spurs CERVICAL FUSION ROTATOR CUFF REPAIR CARDIAC ELECTROPHYSIOLOGY ST UDY AND ABLATION 07/28/2018 APPENDECTOMY TUBAL LIGATION before hysterectomy INSERT / REPLACE / REMOVE PACEMAKER ROTATOR CUFF REPAIR 03/10/2023 Right Medical History Medical History Date Comments Low vitamin D level 04/27/2017 Venous stasis 10/28/2017 Nocturia more than twice per night 01/27/2018 Atrial fibrillation (HCC) Hypertension Hyperlipidemia CKD (chronic kidney disease), stage III (HCC) Status post placement of implantable loop record er linq Claustrophobia Arthritis Difficulty walking Family History Medical History Relation Name Comments Heart attack Father charlie Kidney disease Father charlie Heart failure Mother Congestive hea rt failure; Hypertension Mother Relation Name Status Comments Father charlie (Age 63) Mother (Age 81) Social History Tobacco Use Types Packs/Day Years Used Date Smoking Tobacco: Never Smokeless Tobacco: Never Tobacco Cessation:Counseling Given: Not Answered Alcohol Use Standard Drinks/Week Comments Never 0 (1 standard drink = 0.6 oz pur e alcohol) rarely Personal Safety Answer Date Recorded Getting School Help Needed Denies 10/23 Comments Unknown Sex and Gender Information Value Date Recorded Sex Assigned at Not on file Legal Sex Female 9:18 PM OPTIMIZATION ENGINEER Gender Identity Female 03/01/2020 6:35 PM CDT Sexual Orientation Straight 09/02/2020 11 :24 AM OPTIMIZATION ENGINEER Last Filed Vital Signs Vital Sign Reading Time Taken Comments Blood Pressure 132/70 12/20/2024 3:21 PM OPTIMIZATION ENGINEER Pulse 74 12/20/2024 3:21 PM OPTIMIZATION ENGINEER Temperature 37.9 C (100.3 F) 11/28/2022 8:12 PM OPTIMIZATION ENGINEER Respiratory Rate 16 11/28/2022 11:30 PM OPTIMIZATION ENGINEER Oxygen Saturation 98% 12/20/2024 3:21 PM OPTIMIZATION ENGINEER Inhaled Oxygen Concentration - - Weight 66.7 kg (147 lb) 12/20/2024 3:21 PM OPTIMIZATION ENGINEER Height 160 cm (5' 3) 12/20/2024 3:21 PM OPTIMIZATION ENGINEER Body Mass Index 26.04 12/20/2024 3:21 PM OPTIMIZATION ENGINEER Plan of Treatment Health Maintenance Due Date Last Done Comments Depression Screening 1945 Osteoporosis Screening-Bone Density Scan 1945 DTaP/Tdap/Td Vaccine (1 - Tdap) 1956 Hepatitis B Screening 1963 Pneumococcal vaccine 65+ (1 of 2 - PCV) 1964 Zoster Vaccine (1 of 2) 1964 Well Visit 65+ 2010 Fall Risk Assessment 09/30/2023 09/30/2022 Influenza Vaccine (#1) 2025 06/26/2020 Medical Devices Implanted Type Area Manager Fleet Device Identifier Shelf Expiration Date Model / Serial / Lot Medtronic Inc Capsurefix Novus 6.2fr 2mm 52cm Bipolar Screw In Implantable Latex Free 5076-52 - [id number] - [id number] Implanted:Qty: 1 on 09/30/2022 by Hayes Wheat MD at [facility] Lead Medtronic Inc [id number] 07/22/2024 5076-52 / [id number] / Medtronic Inc Capsurefix Novus 6.2fr 2mm 45cm Bipolar Screw In Implantable 5076-45 - [id number] - [id number] Implanted:Qty: 1 on 09/30/2022 by Hayes Wheat MD at [facility] Lead Medtronic Inc [id number] 08/02/2024 5076-45 / [id number] / Medtronic Inc Ursina S Mri Surescan 50.8x46.6mm 2 Chamber 7.4mm Pacemaker 22.5gm [id number] - [id number] - [id number] Implanted:Qty: 1 on 09/30/2022 by Hayes Wheat MD at [facility] Pacemaker Medtronic Inc 01/19/2024 [id number] / [id number] / Explanted Type Area Manager Fleet Device Identifier Shelf Expiration Date Model / Serial / Lot Medtronic Cardiac Rhythm Mgmt Linqsys Reveal Linq Mycarelink Insertable Loop Recorder Automatic - [id number] - [id number] Implanted:Qty: 1 on 07/09/2019 by Hayes Wheat MD at [facility] Explanted:Qty: 1 on 09/30/2022 by Hayes Wheat MD at [facility] N/A: Chest Wall Medtronic Inc [id number] 04/06/2020 LINQSYS / [id number] / D Insurance [facility] [address] [place] [address] HEALTHCARE [facility] Care Teams Purchase Analyst Relationship Specialty Start Date End Date Cecil Land MD PCP - General Family Medicine 05/06/23 Miscellaneous, Not In File 09/30/22
--- OUTSIDE RECORDS SUMMARY | 2025-10-08 10:41 | XMS_ITS ---
Author Name Keturah FUENTES, MRS. Connell npal Address [address] [place] [address] Phone [phone] Organization [facility] Care Team Providers Care Video Game Developer Name Role Phone Keturah Radhadarlene Unavailable [phone] AUREA VIRAMONTES Unavailable [phone] Radha Bourne Unavailable [phone] PERRY MA Unavailable [phone] Reason for Referral Not Available Allergies, adverse reactions, alerts Allergen Type Reaction Severity Status Onset Date Codeine Allergy to substance (disorder) nausea Unknown Active N/A Muscle Relaxant/Analgesic Allergy to substance (disorder) mental status changes Unknown Active N/A History of medication use Medication Class Instructions Start Date End Date Allopurinol 300 mg Tab TAKE 1 TABLET BY MOUTH EVERY DAY 2024-11-11 No Data Available Breo Ellipta 100-25 MCG/ACT Aerosol Powder Breath Activated INHALE 1 PUFF DAILY 2024-08-31 No Data Available cloNIDine 0.2 mg/24HR Patch Weekly APPLY 1 PATCH ONTO THE SKIN WEEKLY ON Tuesday2024-07-20 No Data Available Eliquis 5 mg Tab TAKE 1 TABLET BY TESSY TH TWICE A DAY 2024-10-31 No Data Available Estradiol 0.5 mg Tab TAKE 1 TABLET BY MO UTH EVERY DAY 2024-10-22 No Data Available Gabapentin 100 mg Cap TAKE 1 CAPSULE BY MOUTH IN THE MORNING, 1 CAP AT NOON, AND 2 CAPS AT BEDTIME 2024-09-03 No Data Available Irbesartan 300 mg Tab TAKE 1 TABLET BY M OUTH EVERY EVENING 2024-10-07 No Data Available Metoprolol Tartrate 50 mg Tab TAKE 1 TAB LET BY MOUTH TWICE A DAY 2024-10-15 No Data Available Pantoprazole Sodium 40 mg Ta b delayed rel TAKE 1 TABLET BY MOUTH EVERY DAY 2024-07-18 No Data Available Furosemide 40 mg Tab 1 tablet orally daily 2025-02-15 No Data Available Potassium Chloride ER 10 MEQ Cap ER TAKE 1 CAPSULE BY MOUTH EVERY DAY 2024-06-28 No Data Available Rosuvastatin Calcium 5 mg Tab TAKE 1 TAB LET BY MOUTH EVERY OTHER DAY 2024-10-06 No Data Available Vitamin-B Complex Tab 1 tablet orally daily 2025-02-15 No Data Available Hydroxychloroquine Sulfate 2 00 mg Tab One tablet in the AM and one tablet in the afternoon 2025-02-15 No Data Available Vitamin D3 50 MCG (1999) Cap 1 capsule orally daily 2025-02-15 No Data Available ZyrTEC Allergy 10 mg Cap Take 1 tablet daily 2025-01-23 5 No Data Available Tylenol Extra Strength 500 m g Tab Take 2 tablets 8 hours as needed 2025-02-15 No Data Available Problem List Problem Status Onset Date Resolved Date Synopsis COPD (chronic obstructive pulmonary disease) Active 15-02-25 N/A N/A CKD (chronic kidney disease) stage 3, GFR 30-59 ml/min Active 2025-02-15 N/A N/A HTN (hypertension) Active 2025-02-15 N/A N/A Peripheral neuropathy Active 2025-02-15 N/A N/A Atrial fibrillation Active 2025-02-15 N/A N/A HLD (hyperlipidemia) Active 2025-02-15 N/A N/A GERD (gastroesophageal reflux disease) Active N/A N/A Rheumatoid arthritis Active 2025-02-15 N/A N/A Encounters Encounters Type Facility Date of Service Diagnosis/Co mplaint Home visit for evaluation and management of new patient requiring medically appropriate examination and moderate level of medical decision making. If using time, at least 60 minutes total time on enco [facility] [place] 02/15/2025 Chronic obstructive pulmonary disease, unspecifiedChronic kidney disease, stage 3 unspecifiedEssential (primary) hypertensionPolyneuropathy, unspecifiedUnspecified atrial fibrillationHyperlipidemia, unspecifiedGastro-esophageal reflux disease without esophagitisRheumatoid arthritis, unspecifiedBody mass index (BMI) 24.0-24.9, adult Home visit for evaluation and management of new patient requiring medically appropriate examination and moderate level of medical decision making. If using time, at least 60 minutes total time on enco [facility] [place] 02/15/2025 Essential (primary) hypertension Vital Signs Date of Collection Vitals 2025-02-15 07:30:00 Height - 160.02 cmWe ight - 63.5 kgBody Mass Index (BMI) - 24.8 kg/m2BP Diastolic - 85.0 mm[Hg]BP Systolic - 149.0 mm[Hg]Heart Rate - 64.0 /minRespiratory Rate - 16.0 /minBody Temperature - 36.39 CelO2 % BldC Oximetry - 98.0 % Social History Sex Female History of Procedures Procedures Service Procedure code Service date Servicing provider Phone# Home visit for evaluation and management of new patient requiring medically appropriate examination and moderate level of medical decision making. If using time, at least 60 minutes [place] enco [id number] 2025-02-15 No Data Available No Data Availa ble Advance care planning discussion documented in medical record [id number] 2025-02-15 No Data Available No Data Avai maureenle Functional Status Functional Category Effective Dates continues to drive 2025-02-15 lives alone and is independent with ADL' s 2025-02-15 Mental Status Status Date no cognitive issues 2025-02-15 Assessments Date of Service Assessments 2025-02-15 07:30:00 COPD (chronic obstru ctive pulmonary disease)CKD (chronic kidney disease) stage 3, GFR 30-59 ml/minHTN (hypertension)Peripheral neuropathyAtrial fibrillationHLD (hyperlipidemia)GERD (gastroesophageal reflux disease)Rheumatoid arthritis Plan of Care Date of Service Plans 2025-02-15 07:30:00 Renal follow ups Q4 monthsCardiologist follow ups Q6 monthsRheumatology follow up - next appt hronic; stablecontinue Breo Ellipta 100/25 1 puff dailymanaged by PCPchronicmonitor kidney function closelymanaged by renal with Q4 follow upschronic; stablecontinue clonidine 0.2 mg patch weeklycontinue irbesartan 300 mg once daily and metoprolol 50 mg BIDdiscussed sodium intake - cut back on TV dinnersencouraged increasing water intakechroniccontinue gabapentin 100mg KIRSTIE 1 CAPSULE BY MOUTH IN THE MORNING, 1 CAP AT NOON, AND 2 CAPS AT BEDTIMEmanaged by PCPchronic; controlledcontinue Eliquis 5 mg BID and metoprolol 50 mg BIDmanaged by cardiology with Q6 month follow upschronic; stablecontinue rosuvastatin 5 mg once dailyheart healthy dietchroniccontinue pantoprazole 40 mg once dailyavoid food triggersnewer diagnosiscontinue hydroxychloroquine 200 mg 1 tablet AM and 1 tablet afternoon. Started 11/2024Rheumatology following - question of SLE? Health Concerns Date Concern 2025-02-15 [facility] Calls is a service that involves a physician or advanced practice provider conducting comprehensive assessments in your patient s home or virtually to address crucial areas such as chronic conditions, quality gaps, social concerns, fall risk prevention, and various screenings. Please note that your patient will remain attributed to you even though they are participating in this service. If you have any questions, please reach out directly to our team at the phone number above.Your patient, Ana Luisa Desouza, 1945, was seen today for a Healthy House Call visit. Patient read rights and responsibilities and consented to treatment. The purpose of this summary is to update you on the patient's current health status and share any relevant findings from the examination. 2025-02-15 Patient was doing ou tpt PT for her neuropathy. She just completed it.
--- OUTSIDE RECORDS SUMMARY | 2025-10-08 10:42 | XMS_ITS | Clinical Summary ---
Author Organization [facility] medei[facility] Address [address] [place] [address] Phone Care Team Providers Care Rn Private Duty Name Role Phone Amadeo Gallegos MD Primary Care Provider [phone] Allergies Active Allergy Reactions Criticality Noted Date Comments Codeine Rash Medium 03/08/2021 Medications acetaminophen (TYLENOL) 500 MG tablet Take 500 mg by mouth Active Eliquis 5 MG tablet Take 5 mg by mouth 2 (two) times a day 1 Active b complex vitamins capsule Take 1 capsule by mouth daily Active cetirizine (ZyrTEC) 10 MG tablet Take 10 mg by mouth daily Active chlorthalidone (HYGROTON) 25 MG tablet Take 25 mg by mouth 1 (one) time each day 1 Active cholecalciferol (VITAMIN D-3) 50 MCG (1999 UT) capsule Take 2,000 Units by mouth daily Active cloNIDine 0.2 MG/24HR patch weekly 1 Active estradiol (ESTRACE) 0.5 MG tablet Take 0.5 mg by mouth 1 (one) time each day 1 Active furosemide (LASIX) 40 MG tablet Take 40 mg by mouth 1 (one) time each day 1 Active gabapentin (NEURONTIN) 100 MG capsule TAKE 1 CAPSULE BY MOUTH THREE TIMES A DAY 1 Active irbesartan (AVAPRO) 300 MG tablet Take 300 mg by mouth 1 (one) time each day 1 Active pantoprazole (PROTONIX) 40 MG EC tablet Take 40 mg by mouth 1 (one) time each day 1 Active rosuvastatin (CRESTOR) 5 MG tablet Take 5 mg by mouth every other day 1 Active metoprolol tartrate (LOPRESSOR) 50 MG tablet Take 50 mg by mouth 2 (two) times a day 1 Active allopurinol (ZYLOPRIM) 300 MG tablet 1 Active potassium chloride (MICRO-K) 10 MEQ CR capsule 1 Active predniSONE (DELTASONE) 10 MG tablet 1 Active Breo Ellipta 100-25 MCG/INH inhaler 2 Active Trelegy Ellipta 100-62.5-25 MCG/INH aerosol powder TAKE 1 PUFF BY MOUTH EVERY DAY 2 Active HYDROcodone-joann taminophen (NORCO) 5-325 MG per tablet TAKE 1 TABLET BY MOUTH FOUR TIMES A DAY NEEDED FOR PAIN 2 Active ketorolac (ACULAR) 0.5 % ophthalmic solution INSTILL 1 DROP INTO LEFT EYE 3 TIMES A DAY BEGINNING 3 DAYS BEFORE SURGERY 2 Active moxifloxacin (VIGAMOX) 0.5 % ophthalmic solution INSTILL 1 DROP INTO LEFT EYE 3 TIMES A DAY BEGINNING THE DAY AFTER SURGERY 2 Active prednisoLONE acetate (PRED FORTE) 1 % ophthalmic suspension INSTILL 1 DROP INTO LEFT EYE 3 TIMES A DAY BEGINNING THE DAY AFTER SURGERY 2 Active Active Problems Problem Noted Date Diagnosed Date Myalgia 03/19/2022 Carotid bruit 10/02/2021 Mixed hyperlipidemia 10/02/2021 Paresthesia of foot 07/09/2021 Dyspnea on exertion 05/07/2021 Ventricular bigeminy 03/06/2021 Ventricular premature beats 03/06/2021 Palpitations 12/06/2018 Nonrheumatic aortic valve insufficiency 07/26/20 18 Pulmonary hypertension 07/26/2018 Dyslipidemia 05/10/2018 Peripheral vascular disease 03/10/2018 Nocturia 01/27/2018 Pain in lower limb 10/28/2017 Venous stasis 10/28/2017 History of cardiovascular surgery 06/10/2017 Overview (03/08/2021): [employer] Reveal Loop Recorder Dx; Management of Af. DOI 07/09/2019. Carelink remote home monitoring. Decreased vitamin D 04/27/2017 Exercise induced bronchospasm 12/12/2015 Overview (03/08/2021): Exercise induced bronchospasm Edema of lower extremity 09/30/2015 Overview (03/08/2021): Bilateral lower extremity edema Long-term current use of anticoagulant 5 Overview (03/08/2021): Chronic anticoagulation Chronic fatigue syndrome 08/25/2015 Overview (03/08/2021): Chronic fatigue Essential hypertension 08/25/2015 Overview (03/08/2021): Essential hypertension Insomnia 08/25/2015 Overview (03/08/2021): Insomnia due to stress Paroxysmal atrial fibrillation 08/25/2015 Overview (03/08/2021): Atrial fibrillation, currently in sinus rhythm Added automatically from request for surgery [id number] Immunizations Immunization Administration Dates Next Due Sars-cov-2, Unspecified 02/03/2021 Family History Medical History Relation Comments Heart disease Father Kidney disease Father Heart failure Mother Hypertension Mother Relation Status Comments Father Mother Social History Tobacco Use Types Packs/Day Years Used Date Smoking Tobacco: Never Smokeless Tobacco: Never Alcohol Use Standard Drinks/Week Comments Yes 0 (1 standard drink = 0.6 oz pur e alcohol) rarely Comments Unknown Sex and Gender Information Value Date Recorded Sex Assigned at Not on file Legal Sex Female 9:40 AM MDT Gender Identity Not on file Sexual Orientation Not on file Last Filed Vital Signs Vital Sign Reading Time Taken Comments Blood Pressure 128/70 06/16/2022 8:37 AM CDT Pulse - - Temperature 36.1 C (97 F) 06/16/2022 8:37 AM CDT Respiratory Rate 18 06/16/2022 8:37 AM CDT Oxygen Saturation - - Inhaled Oxygen Concentration - - Weight 63 kg (139 lb) 06/16/2022 8:37 AM CDT Height 162.6 cm (5' 4) 06/16/2022 8:37 AM CDT Body Mass Index 23.86 06/16/2022 8:37 AM CDT Plan of Treatment Health Maintenance Due Date Last Done Comments Pneumococcal PPSV23/PCV13 65 + Years / Low and Medium Risk (1 of 2 - PCV) 1995 Influenza Vaccine (#1) 2025 Insurance [employer] H[employer] Care Teams Rn Private Duty Relationship Specialty Start Date End Date Amadeo Gallegos MD [address] [place] [phone] PCP - General Family Medicine 02/17/21
== END 2025-10-08 09:32 | disposition home or self-care (01) ==
LOC: ANHLAB 09:32
PROVIDERS: PCP Family Medicine; Visit Provider Family Medicine
DX: N18.4 Chronic kidney disease, stage 4 (severe) (principal)
CPT/HCPCS: 36415; 80053; 85025

== ENCOUNTER 2025-10-14 14:42 | Outpatient (CLI) | payer OTHER, SELFPAY ==
[2025-10-14 15:44] LABS: Anion Gap 9 mmol/L (4-12); Blood Urea Nitrogen 33 mg/dL (7-17); Calcium 10.8 mg/dL (8.4-10.2); Carbon Dioxide 24 mmol/L (22-30); Chloride 106 mmol/L (98-107); Estimated Glomerular Filt Rate 21; Glucose 127 mg/dL (65-110); Potassium 3.7 mmol/L (3.4-5.0); Sodium 139 mmol/L (137-145)
--- OUTSIDE RECORDS SUMMARY | 2025-10-14 16:33 | XMS_ITS ---
Author Name Keturah FUENTES, MRS. Connell npal Address [address] [place] [address] Phone [phone] Organization [facility] Care Team Providers Care Mingle Operator Name Role Phone Keturah Radhadarlene Unavailable [phone] AUREA VIRAMONTES Unavailable [phone] Radha Bourne Unavailable [phone] PERRY MA Unavailable [phone] Reason for Referral Not Available Allergies, adverse [...] least 60 minutes total time on enco [facility] [place] 02/15/2025 Chronic obstructive pulmonary disease, [...] least 60 minutes total time on enco [id number] 2025-02-15 No Data Available No Data Availa [...]
--- OUTSIDE RECORDS SUMMARY | 2025-10-14 16:33 | XMS_ITS | Encounter Summary ---
Author Organization [facility] Address [address] [facility] [address] [place] [address] Care Team Providers Care Bank And Savings Securities Trader Name Role Phone Amadeo Paulson MD Primary Care Prov ider Amadeo Paulson MD Primary Care Prov ider Miscellaneous, Not In File Unavailable Unava Cecil Green MD Primary Care Provider [phone] Encounter Details Date Type Department Care Team (Late st Contact Info) Description 01/03/2017 Orders Only [facility] ProviderTeddy MD [address] [place] [phone] Social History Tobacco Use Types Packs/Day Years Used Date Smoking Tobacco: Never Alcohol Use Standard Drinks/Week Comments No 0 (1 standard drink = 0.6 oz pur e alcohol) Comments Unknown Sex and Gender Information Value Date Recorded Sex Assigned at Not on file Legal Sex Female 9:18 PM PROCESSING SPEC Gender Identity Female 03/01/2020 6:35 PM CDT Sexual Orientation Straight 09/02/2020 11 :24 AM PROCESSING SPEC documented as of this encounter Plan of [...] COVID: Suspected 11/28/2022 11/28/2022 11/28/2022 11:16 PM PROCESSING SPEC COVID19 11/28/2022 11/28/2022 12/08/2022 3:05 AM PROCESSING SPEC COVID: Recovered Comment:Added based on recent COVID infection. 12/08/2022 01/05/2023 03/08/2023 3:05 AM C DT documented as of this encounter Care Teams Bank And Savings Securities Trader Relationship Specialty Start Date End Date Amadeo Paulson MD PCP - General 01/21/17 05/05/23 Amadeo Paulson MD PCP - General 11/08/16 01/20/17 Cecil Land MD PCP - General Family Medicine 05/06/23 Miscellaneous, Not In File 09/30/22 documented as of this encounter
--- OUTSIDE RECORDS SUMMARY | 2025-10-14 16:33 | XMS_ITS | Encounter Summary ---
Author Organization [facility] Address [address] [facility] [address] [facility] [address] [place] [address] Care Team Providers Care Inspector Water Pollution Control Name Role Phone Amadeo Paulson MD Primary Care Prov ider Miscellaneous, Not In File Unavailable Unava Cecil Green MD Primary Care Provider [phone] Encounter Details Date Type Department Care Team (Late st Contact Info) Description 02/14/2017 Orders Only [facility] ProviderTeddy MD [address] [place], [place] [id number] Social History Tobacco Use Types Packs/Day Years Used Date Smoking Tobacco: Never Alcohol Use Standard Drinks/Week Comments No 0 (1 standard drink = 0.6 oz pur e alcohol) Comments Unknown Sex and Gender Information Value Date Recorded Sex Assigned at Not on file Legal Sex Female 9:18 PM ENDO TECH Gender Identity Female 03/01/2020 6:35 PM CDT Sexual Orientation Straight 09/02/2020 11 :24 AM ENDO TECH documented as of this encounter Plan of [...] COVID: Suspected 11/28/2022 11/28/2022 11/28/2022 11:16 PM ENDO TECH COVID19 11/28/2022 11/28/2022 12/08/2022 3:05 AM ENDO TECH COVID: Recovered Comment:Added based on recent COVID infection. 12/08/2022 01/05/2023 03/08/2023 3:05 AM C DT documented as of this encounter Care Teams Inspector Water Pollution Control Relationship Specialty Start Date End Date Amadeo Paulson MD PCP - General 01/21/17 05/05/23 Cecil Land MD PCP - General Family Medicine 05/06/23 Miscellaneous, Not In File 09/30/22 documented as of this encounter
--- OUTSIDE RECORDS SUMMARY | 2025-10-14 16:33 | XMS_ITS | Clinical Summary ---
Author Organization [facility] Address [address] [place] [phone] Phone Care Team Providers Care Reservoir Engineering Manager Name Role Phone Amaedo Gallegos MD Primary Care Provider [phone] Allergies Active Allergy Reactions Criticality Noted Date [...] History of cardiovascular surgery 06/10/2017 Overview (03/08/2021): [employer] Reveal Loop Recorder Dx; Management of Af. [...] rhythm Added automatically from request for surgery [id number] Immunizations Immunization Administration Dates Next Due Sars-cov-2, [...] 2025 Insurance [employer] HMO Care Teams Reservoir Engineering Manager Relationship Specialty Start Date End Date Amadeo Gallegos MD [address] [place] [phone] PCP - General Family Medicine 02/17/21
--- OUTSIDE RECORDS SUMMARY | 2025-10-14 16:33 | XMS_ITS | Encounter Summary ---
Author Organization [facility] Address [address] [place] [address] Care Team Providers Care Payment Rep Name Role Phone Amadeo Paulson MD Primary Care Prov ider Miscellaneous, Not In File Unavailable Unava Cecil Green MD Primary Care Provider [phone] Encounter Details Date Type Department Care Team (Late st Contact Info) Description 11/01/2017 Orders Only [facility] Health Information Management [address] [place] [phone] Scanning, Provider Social History Tobacco Use Types Packs/Day Years Used Date Smoking Tobacco: Never Smokeless Tobacco: Never Alcohol Use Standard Drinks/Week Comments No 0 (1 standard drink = 0.6 oz pur e alcohol) Comments Unknown Sex and Gender Information Value Date Recorded Sex Assigned at Not on file Legal Sex Female 9:18 PM ASSOCIATE PROFESSOR OF THEATRE Gender Identity Female 03/01/2020 6:35 PM CDT Sexual Orientation Straight 09/02/2020 11 :24 AM ASSOCIATE PROFESSOR OF THEATRE documented as of this encounter Plan of [...] COVID: Suspected 11/28/2022 11/28/2022 11/28/2022 11:16 PM ASSOCIATE PROFESSOR OF THEATRE COVID19 11/28/2022 11/28/2022 12/08/2022 3:05 AM ASSOCIATE PROFESSOR OF THEATRE COVID: Recovered Comment:Added based on recent COVID infection. 12/08/2022 01/05/2023 03/08/2023 3:05 AM C DT documented as of this encounter Care Teams Payment Rep Relationship Specialty Start Date End Date Amadeo Paulson MD PCP - General 01/21/17 05/05/23 Cecil Land MD PCP - General Family Medicine 05/06/23 Miscellaneous, Not In File 09/30/22 documented as of this encounter
--- OUTSIDE RECORDS SUMMARY | 2025-10-14 16:33 | XMS_ITS | Encounter Summary ---
Author Organization [facility] Address [address] [place] [address] Care Team Providers Care Special Procedures Tech Name Role Phone Amadeo Paulson MD Primary Care Prov ider Miscellaneous, Not In File Unavailable Unava Cecil Green MD Primary Care Provider [phone] Encounter Details Date Type Department Care Team (Late st Contact Info) Description 06/13/2018 Orders Only [facility] Health Information Management [address] [place] [id number] Scanning, Provider Social History Tobacco Use Types Packs/Day Years Used Date Smoking Tobacco: Never Smokeless Tobacco: Never Alcohol Use Standard Drinks/Week Comments No 0 (1 standard drink = 0.6 oz pur e alcohol) Comments Unknown Sex and Gender Information Value Date Recorded Sex Assigned at Not on file Legal Sex Female 9:18 PM COMPUTATIONAL CHEMIST Gender Identity Female 03/01/2020 6:35 PM CDT Sexual Orientation Straight 09/02/2020 11 :24 AM COMPUTATIONAL CHEMIST documented as of this encounter Plan of [...] COVID: Suspected 11/28/2022 11/28/2022 11/28/2022 11:16 PM COMPUTATIONAL CHEMIST COVID19 11/28/2022 11/28/2022 12/08/2022 3:05 AM COMPUTATIONAL CHEMIST COVID: Recovered Comment:Added based on recent COVID infection. 12/08/2022 01/05/2023 03/08/2023 3:05 AM C DT documented as of this encounter Care Teams Special Procedures Tech Relationship Specialty Start Date End Date Amadeo Paulson MD PCP - General 01/21/17 05/05/23 Cecil Land MD PCP - General Family Medicine 05/06/23 Miscellaneous, Not In File 09/30/22 documented as of this encounter
--- OUTSIDE RECORDS SUMMARY | 2025-10-14 16:33 | XMS_ITS | Encounter Summary ---
Author Organization [facility] Address [address] [facility] [address] [place] [address] Care Team Providers Care Education Reporter Name Role Phone Amadeo Paulson MD Primary Care Prov ider Amadeo Paulson MD Primary Care Prov ider Miscellaneous, Not In File Unavailable Unava Cecil Green MD Primary Care Provider [phone] Encounter Details Date Type Department Care Team (Late st Contact Info) Description 11/25/2016 Orders Only [facility] ProviderTeddy MD [address] [place] [address] Social History Tobacco Use Types Packs/Day Years Used Date Smoking Tobacco: Never Alcohol Use Standard Drinks/Week Comments No 0 (1 standard drink = 0.6 oz pur e alcohol) Comments Unknown Sex and Gender Information Value Date Recorded Sex Assigned at Not on file Legal Sex Female 9:18 PM GLACIOLOGIST Gender Identity Female 03/01/2020 6:35 PM CDT Sexual Orientation Straight 09/02/2020 11 :24 AM GLACIOLOGIST documented as of this encounter Plan of [...] COVID: Suspected 11/28/2022 11/28/2022 11/28/2022 11:16 PM GLACIOLOGIST COVID19 11/28/2022 11/28/2022 12/08/2022 3:05 AM GLACIOLOGIST COVID: Recovered Comment:Added based on recent COVID infection. 12/08/2022 01/05/2023 03/08/2023 3:05 AM C DT documented as of this encounter Care Teams Education Reporter Relationship Specialty Start Date End Date Amadeo Paulson MD PCP - General 01/21/17 05/05/23 Amadeo Paulson MD PCP - General 11/08/16 01/20/17 Cecil Land MD PCP - General Family Medicine 05/06/23 Miscellaneous, Not In File 09/30/22 documented as of this encounter
--- OUTSIDE RECORDS SUMMARY | 2025-10-14 16:33 | XMS_ITS | Encounter Summary ---
Author Organization [facility] Address [address] [address] Care Team Providers Care Ceo And President Name Role Phone Amadeo Paulson MD Primary Care Prov ider Amadeo Paulson MD Primary Care Prov ider Amadeo Paulson MD Primary Care Prov ider Miscellaneous, Not In File Unavailable Unava Cecil Green MD Primary Care Provider [phone] Encounter Details Date Type Department Care Team (Late st Contact Info) Description 10/17/2016 Orders Only [facility] ProviderTeddy MD [address] [place] [address] Social History Tobacco Use Types Packs/Day Years Used Date Smoking Tobacco: Never Alcohol Use Standard Drinks/Week Comments No 0 (1 standard drink = 0.6 oz pur e alcohol) Comments Unknown Sex and Gender Information Value Date Recorded Sex Assigned at Not on file Legal Sex Female 9:18 PM SYSTEM ADMINISTRATION MANAGER Gender Identity Female 03/01/2020 6:35 PM CDT Sexual Orientation Straight 09/02/2020 11 :24 AM SYSTEM ADMINISTRATION MANAGER documented as of this encounter Plan [...] COVID: Suspected 11/28/2022 11/28/2022 11/28/2022 11:16 PM SYSTEM ADMINISTRATION MANAGER COVID19 11/28/2022 11/28/2022 12/08/2022 3:05 AM SYSTEM ADMINISTRATION MANAGER COVID: Recovered Comment:Added based on recent COVID infection. 12/08/2022 01/05/2023 03/08/2023 3:05 AM C DT documented as of this encounter Care Teams Ceo And President Relationship Specialty Start Date End Date Amadeo Paulson MD PCP - General 01/21/17 05/05/23 Amadeo Paulson MD PCP - General 11/08/16 01/20/17 Amadeo Paulson MD PCP - General 09/30/15 11/07/16 Cecil Land MD PCP - General Family Medicine 05/06/23 Miscellaneous, Not In File 09/30/22 documented as of this encounter
--- OUTSIDE RECORDS SUMMARY | 2025-10-14 16:33 | XMS_ITS | Clinical Summary ---
Author Organization [facility] Address [address] [place] [address] Care Team Providers Care Pattern Grader Name Role Phone Miscellaneous, Not In File Unavailable Unava Cecil Green MD Primary Care Provider [phone] Allergies Active Allergy Reactions Criticality Noted Date [...] - [facility] 05/06/25-transferred to [facility]. Cardiac arrhythmia 09/21/2022 Overview (09/21/2022): Added automatically from request for surgery [id number] Myalgia 03/19/2022 Medication side effects 03/19/2022 Mixed hyperlipidemia 10/02/2021 Bruit of left carotid artery 10/02/2021 Numbness and tingling of both feet 07/09/2021 MARINELLI (dyspnea on exertion) 05/07/2021 Symptomatic PVCs 03/06/2021 Ventricular bigeminy 03/06/2021 Nonrheumatic mitral valve regurgitation 01/01/20 21 Palpitations 12/06/2018 Other chest pain 12/06/2018 Paroxysmal atrial fibrillation 08/02/2018 Overview (08/02/2018): Added automatically from request for surgery [id number] Pulmonary HTN 07/26/2018 Nonrheumatic aortic valve insufficiency [...] on file Legal Sex Female 9:18 PM PREDATORY ANIMAL TRAPPER Gender Identity Female 03/01/2020 6:35 PM CDT Sexual Orientation Straight 09/02/2020 11 :24 AM PREDATORY ANIMAL TRAPPER Last Filed Vital Signs Vital Sign Reading Time Taken Comments Blood Pressure 132/70 12/20/2024 3:21 PM PREDATORY ANIMAL TRAPPER Pulse 74 12/20/2024 3:21 PM PREDATORY ANIMAL TRAPPER Temperature 37.9 C (100.3 F) 11/28/2022 8:12 PM PREDATORY ANIMAL TRAPPER Respiratory Rate 16 11/28/2022 11:30 PM PREDATORY ANIMAL TRAPPER Oxygen Saturation 98% 12/20/2024 3:21 PM PREDATORY ANIMAL TRAPPER Inhaled Oxygen Concentration - - Weight 66.7 kg (147 lb) 12/20/2024 3:21 PM PREDATORY ANIMAL TRAPPER Height 160 cm (5' 3) 12/20/2024 3:21 PM PREDATORY ANIMAL TRAPPER Body Mass Index 26.04 12/20/2024 3:21 PM PREDATORY ANIMAL TRAPPER Plan of Treatment Health Maintenance Due Date Last Done Comments Depression Screening 1945 Osteoporosis Screening-Bone Density Scan 1945 DTaP/Tdap/Td Vaccine (1 - Tdap) 1956 Hepatitis B Screening 1963 Pneumococcal vaccine 65+ (1 of 2 - PCV) 1964 Zoster Vaccine (1 of 2) 1964 Well Visit 65+ 2010 Fall Risk Assessment 09/30/2023 09/30/2022 Influenza Vaccine (#1) 2025 06/26/2020 Medical Devices Implanted Type Area Instrument Panel Assembler Device Identifier Shelf Expiration Date Model / Serial / Lot Medtronic Inc Capsurefix Novus 6.2fr 2mm 52cm Bipolar Screw In Implantable Latex Free 5076-52 - [id number] - [id number] Implanted:Qty: 1 on 09/30/2022 by Hayes Wheat MD at [facility] Lead Med[employer]onic Inc [id number] 07/22/2024 5076-52 / [id number] / Med[employer]onic Inc Capsurefix Novus 6.2fr 2mm 45cm Bipolar Screw In Implantable 5076-45 - [id number] - [id number] Implanted:Qty: 1 on 09/30/2022 by Hayes Wheat MD at [facility] Lead Med[employer] Inc [id number] 08/02/2024 5076-45 / [id number] / Medtronic Inc [place] S Mri Surescan 50.8x46.6mm 2 Chamber 7.4mm Pacemaker 22.5gm [id number] - [id number] - [id number] Implanted:Qty: 1 on 09/30/2022 by Hayes Wheat MD at [facility] Pacemaker Med[employer]onic Inc 01/19/2024 [id number] / [id number] / Explanted Type Area Instrument Panel Assembler Device Identifier Shelf Expiration Date Model / Serial / Lot Medtronic Cardiac Rhythm Mgmt Linqsys Reveal Linq Mycarelink Insertable Loop Recorder Automatic - [id number] - [id number] Implanted:Qty: 1 on 07/09/2019 by Hayes Wheat MD at [facility] Explanted:Qty: 1 on 09/30/2022 by Hayes Wheat MD at [facility] N/A: Chest Wall Med[employer] Inc [id number] 04/06/2020 [id number] / [id number] / D Insurance [facility] [address] [place] [address] HEALTHCARE [facility] Care Teams Pattern Grader Relationship Specialty Start Date End Date Cecil Land MD PCP - General Family Medicine 05/06/23 Miscellaneous, Not In File 09/30/22
== END 2025-10-14 14:43 | disposition home or self-care (01) ==
PROVIDERS: PCP Family Medicine; Visit Provider Family Medicine
DX: N18.4 Chronic kidney disease, stage 4 (severe) (principal)
CPT/HCPCS: 36415; 80048